=== PATIENT | female | born 1995 | race Caucasian/White ===

== ENCOUNTER 2022-12-24 13:15 | Outpatient (CLI) | payer OTHER ==
[2022-12-24 18:00] LABS: BASOPHILS % (AUTO) 0.4 %; EOSINOPHILS # (AUTO) 0.2 10^3/uL (0.0-0.7); EOSINOPHILS % (AUTO) 1.6 %; HCT - HEMATOCRIT 40.6 % (37.0-47.0); HGB - HEMOGLOBIN 13.2 g/dL (12.0-16.0); LYMPHOCYTES % (AUTO) 32.4 %; MEAN CORPUSCULAR HEMOGLOBIN 27.4 pg (27.0-31.0); MEAN CORPUSCULAR HGB CONC 32.5 g/dL (32.0-36.0); MEAN CORPUSCULAR VOLUME 84.4 fL (81.0-99.0); MONOCYTES # (AUTO) 0.8 10^3/uL (0.0-1.0); MONOCYTES % (AUTO) 8.8 %; NEUTROPHILS # (AUTO) 5.3 10^3/uL (1.5-6.6); NEUTROPHILS % (AUTO) 56.5 %; PLT - PLATELET COUNT 302 10^3/uL (130-450); RED BLOOD COUNT 4.81 10^6/uL (4.20-5.40); RED CELL DISTRIBUTION WIDTH 13.3 % (12.0-15.0); WHITE BLOOD COUNT 9.4 x10^3/uL (4.8-10.8)
[2022-12-24 18:17] LABS: ALBUMIN 4.1 g/dL (3.2-5.5); ALBUMIN/GLOBULIN RATIO 1.3 (1.0-2.2); BILIRUBIN,TOTAL 0.8 mg/dL (0.2-1.0); CALCIUM 9.3 mg/dL (8.5-10.3); CREATININE 0.8 mg/dL (0.4-1.0); POTASSIUM 3.6 mmol/L (3.5-5.0); TOTAL PROTEIN 7.3 g/dL (6.7-8.2)
[2022-12-24 18:29] LABS: THYROID STIMULATING HORMONE 1.31 uIU/mL (0.34-5.60)
== END 2022-12-24 13:30 | disposition home or self-care (01) ==
LOC: LAB.N 13:15
PROVIDERS: ATTEND Family Medicine
DX: R06.09 Other forms of dyspnea (principal)
CPT/HCPCS: 36415; 80053; 83880; 84443; 85025

== ENCOUNTER 2022-12-24 15:10 | Outpatient (CLI) | payer OTHER ==
--- NOTE | 2022-12-24 16:44 | XRAY Report ---
PROCEDURE: Chest 2 View X-Ray INDICATIONS: DYSPNEA ON EXERTION TECHNIQUE: 2 views of the chest were acquired. COMPARISON: None. FINDINGS: Surgical changes and devices: None. Lungs and pleura: No pleural effusions or pneumothorax. Lungs are clear. Mediastinum: Mediastinal contours appear normal. Heart size is normal. Bones and chest wall: No suspicious bony lesions. Overlying soft tissues appear unremarkable. IMPRESSION: No acute cardiopulmonary process. Reviewed by: Donovan Ramirez MD on 12/24/2022 3:43 PM AKDT Approved by: Donovan Ramirez MD on 12/24/2022 3:43 PM AKDT Station ID: [id number]
== END 2022-12-24 15:11 | disposition home or self-care (01) ==
LOC: DI 15:10
PROVIDERS: ATTEND Family Medicine
DX: R06.09 Other forms of dyspnea (principal)
CPT/HCPCS: 36415; 80053; 83880; 84443; 85025

== ENCOUNTER 2023-07-28 10:30 | Outpatient (CLI) | payer OTHER | END 2023-07-28 10:45 | disposition home or self-care (01) | LOC: LAB.N 10:30 | PROVIDERS: ATTEND Family Medicine | DX: N91.2 Amenorrhea, unspecified (principal) | CPT/HCPCS: 36415; 84702 ==

== ENCOUNTER 2023-09-17 07:15 | Outpatient (CLI) | payer OTHER ==
[2023-09-17 12:48] LABS: HCG,QUALITATIVE BLOOD NEGATIVE
== END 2023-09-17 07:30 | disposition home or self-care (01) ==
LOC: LAB.N 07:15
PROVIDERS: ATTEND Family Medicine
DX: N91.2 Amenorrhea, unspecified (principal)
CPT/HCPCS: 36415; 84703

== ENCOUNTER 2023-11-29 13:27 | Emergency (ER) | payer OTHER ==
[2023-11-29 14:31] LABS: BASOPHILS % (AUTO) 0.4 %; EOSINOPHILS # (AUTO) 0.1 10^3/uL (0.0-0.7); EOSINOPHILS % (AUTO) 1.5 %; HGB - HEMOGLOBIN 13.9 g/dL (12.0-16.0); LYMPHOCYTES % (AUTO) 31.1 %; MEAN CORPUSCULAR HEMOGLOBIN 27.4 pg (27.0-31.0); MEAN CORPUSCULAR HGB CONC 32.3 g/dL (32.0-36.0); MEAN CORPUSCULAR VOLUME 84.6 fL (81.0-99.0); MEAN PLATELET VOLUME 9.3 fL (7.9-10.8); MONOCYTES # (AUTO) 0.9 10^3/uL (0.0-1.0); NEUTROPHILS # (AUTO) 5.5 10^3/uL (1.5-6.6); NEUTROPHILS % (AUTO) 57.7 %; PLT - PLATELET COUNT 334 10^3/uL (130-450); RED BLOOD COUNT 5.08 10^6/uL (4.20-5.40); RED CELL DISTRIBUTION WIDTH 13.1 % (12.0-15.0); WHITE BLOOD COUNT 9.5 x10^3/uL (4.8-10.8)
[2023-11-29 14:48] LABS: CALCIUM 9.6 mg/dL (8.5-10.3); CREATININE 0.7 mg/dL (0.6-1.3); POTASSIUM 4.1 mmol/L (3.5-4.5)
--- NOTE | 2023-11-29 15:42 | ED Physician Documentation ---
PD HPI FEMALE - Stated complaint Stated Complaint: /5WKS PREG - Chief complaint Chief Complaint: Abd Pain - History obtained from History obtained from: Patient - Additional information Additional information: 28-year-old female presents for vaginal spotting in early . Per last menstrual period patient is approximately 5.5 weeks , confirmed on home urine sticks. Yesterday patient had light spotting and today she has heavier bleeding with cramping. She called her doctor's office who referred her to the ER. This is her first . Review of Systems Constitutional: denies: Fever, Chills GI: denies: Abdominal Pain, Nausea, Vomiting : reports: Vaginal bleeding. denies: Dysuria, Frequency, Hesitancy, Control Neurologic: denies: Generalized weakness, Focal weakness, Numbness PD PAST MEDICAL HISTORY - Past Medical History Past Medical History: Yes GI: GERD Psych: Depression, Anxiety - Past Surgical History Past Surgical History: No - Allergies Allergies/Adverse Reactions: Allergies Allergy/AdvReac Type Severity Reaction Status Date / Time No Known Drug Allergies Allergy Verified 11/29/23 13:43 - Social History Does the pt smoke?: No Smoking Status: Never smoker Does the pt drink ETOH?: No Does the pt have substance abuse?: No - Immunizations Immunizations are current?: Yes - POLST Patient has POLST: No PD ED PE NORMAL - Vitals Vital signs reviewed: Yes - General General: Alert and oriented X 3, No acute distress, Well developed/nourished - Cardiac Cardiac: RRR, Strong equal pulses - Respiratory Respiratory: No respiratory distress - Derm Derm: Normal color, Warm and dry, No rash - Neuro Neuro: Alert and oriented X 3, 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, No motor deficit, Normal speech - Psych Psych: Normal mood, Normal affect Results - Vitals Vitals: Oxygen O2 Source Room air - Labs Labs: Laboratory Tests 11/29/23 11/29/23 11/29/23 14:23 14:23 14:23 WBC 9.5 RBC 5.08 Hgb 13.9 Hct 43.0 MCV 84.6 MCH 27.4 MCHC 32.3 RDW 13.1 Plt Count 334 MPV 9.3 Neut # (Auto) 5.5 Lymph # (Auto) 3.0 [place] # (Auto) 0.9 Eos # (Auto) 0.1 Baso # (Auto) 0.0 Absolute Nucleated RBC 0.00 Nucleated RBC % 0.0 Sodium 138 Potassium 4.1 Chloride 107 Carbon Dioxide 23 Anion Gap 8.0 BUN 13 Creatinine 0.7 Estimated GFR (MDRD) 101 Glucose 98 Calcium 9.6 Beta HCG, Quant 4.2 Blood Type O POSITIVE PD Medical Decision Making - ED course Complexity details: reviewed results, re-evaluated patient, considered differential, d/w patient, d/w family ED course: Vaginal bleeding in very early . G1, P0. Laboratory work shows that hCG quant is barely high enough to be considered positive. Ultrasound shows no significant findings. Blood type a positive. Patient informed of very likely miscarriage as well as anticipated recovery course at home. She was advised to follow-up with MANUAL LATHE MACHINIST and primary care Departure - Departure Disposition: 01 Home, Self Care Clinical Impression: Miscarriage Condition: Stable Instructions: Miscarriage Dc Comments: Your hcg quant level was almost zero and your ultrasound did not show a in the uterus, indicating a likely miscarriage. Please follow up with your primary care doctor as needed. Forms: PCP List Discharge Date/Time: 11/29/23 16:41
--- NOTE | 2023-11-29 16:01 | Ultrasound Report ---
PROCEDURE: OB 1st Trimester w/TV INDICATIONS: 5w VB OUTSIDE/PRIOR DATING DATA: Last menstrual period (LMP): 10/22/2023. LMP-based estimated date of delivery (DAY): 07/28/2024. First dating scan (date and location): 11/29/2023. Estimated date of delivery (DAY) from first dating scan: Not applicable. TECHNIQUE: Real-time scanning was performed of the fetus and maternal pelvic organs, with image documentation. Endovaginal scanning was also performed to better visualize the fetus and maternal ovaries. COMPARISON: None. FINDINGS: No visualized intra or extrauterine . No free fluid. Uterus is normal in size. Endometrial c omplex measures 6 mm. Maternal organs: Ovaries appear within normal limits within visualized portions. IMPRESSION: No visualized intra or extrauterine . Recommend correlation of beta hCG levels and short int erval imaging follow-up as clinically indicated. Reviewed by: Rosaline Shore MD on 11/29/2023 3:59 PM PDT Approved by: Rosaline Shore MD on 11/29/2023 3:59 PM PDT Station ID: [id number]
[2023-11-29 16:44] VITALS: BP 134/94; O2SAT 100
== END 2023-11-29 16:41 | disposition home or self-care (01) ==
LOC: ED 13:27
DX: O03.9 Complete or unspecified spontaneous abortion without complication (principal); Z3A.01 Less than 8 weeks gestation of pregnancy
CPT/HCPCS: 36415; 80048; 84702; 85025; 86900; 86901; 99283; 99284

== ENCOUNTER 2024-03-05 11:16 | Emergency (ER) | payer OTHER ==
[2024-03-05 11:51] LABS: BILIRUBIN,URINE NEGATIVE (NEGATIVE); GLUCOSE, URINE (UA) NEGATIVE (NEGATIVE); KETONES,URINE (UA) NEGATIVE (NEGATIVE); LEUKOCYTE ESTERASE, URINE NEGATIVE (NEGATIVE); NITRITE,URINE NEGATIVE (NEGATIVE); OCCULT BLOOD,URINE SMALL (NEGATIVE); PH,URINE 6.5 PH (5.0-7.5); PROTEIN,URINE NEGATIVE (NEGATIVE); UROBILINOGEN,URINE 0.2 (NORMAL) E.U./dL (NORMAL)
[2024-03-05 11:53] LABS: CLARITY,URINE CLEAR (CLEAR)
[2024-03-05 12:23] LABS: BACTERIA,URINE Rare /HPF (None Seen); RBC,URINE 0-5 /HPF (0-5); SQUAMOUS EPITHELIAL CELL,UR FEW Squamous (<= Few); WBC,URINE 0-3 /HPF (0-5)
[2024-03-05 12:27] LABS: BASOPHILS % (AUTO) 0.5 %; EOSINOPHILS # (AUTO) 0.1 10^3/uL (0.0-0.7); HCT - HEMATOCRIT 39.9 % (37.0-47.0); HGB - HEMOGLOBIN 13.5 g/dL (12.0-16.0); LYMPHOCYTES # (AUTO) 2.8 10^3/uL (1.5-3.5); LYMPHOCYTES % (AUTO) 33.5 %; MEAN CORPUSCULAR HEMOGLOBIN 28.5 pg (27.0-31.0); MEAN CORPUSCULAR HGB CONC 33.8 g/dL (32.0-36.0); MEAN CORPUSCULAR VOLUME 84.2 fL (81.0-99.0); MEAN PLATELET VOLUME 9.2 fL (7.9-10.8); MONOCYTES # (AUTO) 0.7 10^3/uL (0.0-1.0); MONOCYTES % (AUTO) 8.6 %; NEUTROPHILS # (AUTO) 4.6 10^3/uL (1.5-6.6); NEUTROPHILS % (AUTO) 56.2 %; PLT - PLATELET COUNT 254 10^3/uL (130-450); RED BLOOD COUNT 4.74 10^6/uL (4.20-5.40); RED CELL DISTRIBUTION WIDTH 13.1 % (12.0-15.0); WHITE BLOOD COUNT 8.2 x10^3/uL (4.8-10.8)
[2024-03-05 12:48] VITALS: BP 126/83; O2SAT 100
--- NOTE | 2024-03-05 12:53 | ED Physician Documentation ---
History of Present Illness - Stated complaint Stated Complaint: FEMALE - Chief complaint Chief Complaint: General - History obtained from History obtained from: Patient - Additonal information Additional information: Patient is a 29-year-old female presenting to the emergency department with vaginal bleeding that started this morning and she is having some right lower quadrant cramping but she notes this has been going on for weeks and she is notes she has been . She denies any nausea or vomiting. She notes no large amounts of vaginal bleeding. She notes she did not wear a pad and it only occurred while she was wiping. She had a similar episode back in November when she presented here and was having a miscarriage. Patient notes G2, P0. She notes symptoms from last November are different from today as she is not bleeding as much as she was previously. She notes she is not on any blood thinners and does not take any medications regularly. She has not had an ultrasound and has not seen COMM[facility]ATOR [facility] at this time her next appointment is on early Wednesday.Patient also incidentally notes she was diagnosed with COVID earlier this week which is why she missed her [facility] [employer] AS[employer] appointments earlier this week. [place] [facility] [place] [place] She notes no persistent COVID-like symptoms no chest pain or shortness of breath associate with symptoms. PD PAST MEDICAL HISTORY - Past Medical History Past Medical History: Yes Cardiovascular: None Respiratory: Asthma Neuro: Migraines Endocrine/Autoimmune: None GI: GERD TELE MARKETING EXECUTIVE: Ovarian cysts, Miscarriage(s) : None HEENT: None Psych: Depression, Anxiety Musculoskeletal: Chronic back pain Derm: None - Past Surgical History Past Surgical History: No - Present Medications Home Medications: Ambulatory Orders Medication Instructions Recorded Confirmed Pnv No.95/Ferrous Fum/Folic AC 1 each PO DAILY 03/05/24 03/05/24 [ Tablet] Sertraline HCl 100 mg PO DAILY 03/05/24 03/05/24 - Allergies Allergies/Adverse Reactions: Allergies Allergy/AdvReac Type Severity Reaction Status Date / Time shellfish derived Allergy Hives Verified 03/05/24 11:22 - Social History Does the pt smoke?: No Smoking Status: Never smoker Does the pt drink ETOH?: No Does the pt have substance abuse?: No - Immunizations Immunizations are current?: Yes - POLST Patient has POLST: No PD ED PE NORMAL - Vitals Vital signs reviewed: Yes - General General: Alert and oriented X 3 - HEENT HEENT: Atraumatic - Neck Neck: Supple, no meningeal sign - Cardiac Cardiac: RRR, No murmur, No gallop, No rub - Respiratory Respiratory: No respiratory distress, Clear bilaterally - Abdomen Abdomen: Normal bowel sounds - Back Back: No CVA TTP Results - Vitals Vitals: Vital Signs - 24 hr 03/05/24 03/05/24 03/05/24 11:24 12:44 14:04 Temperature 36.4 C L Heart Rate 94 84 91 Respiratory 18 18 14 Rate Blood Pressure 141/82 H 126/83 H O2 Saturation 97 100 100 Oxygen O2 Source Room air - Labs Labs: Laboratory Tests 03/05/24 03/05/24 03/05/24 11:45 12:18 12:18 WBC 8.2 RBC 4.74 Hgb 13.5 Hct 39.9 MCV 84.2 MCH 28.5 MCHC 33.8 RDW 13.1 Plt Count 254 MPV 9.2 Neut # (Auto) 4.6 Lymph # (Auto) 2.8 [place] # (Auto) 0.7 Eos # (Auto) 0.1 Baso # (Auto) 0.0 Absolute Nucleated RBC 0.00 Nucleated RBC % 0.0 Sodium 136 Potassium 3.8 Chloride 106 Carbon Dioxide 23 Anion Gap 7.0 BUN 9 Creatinine 0.6 Estimated GFR (MDRD) 120 Glucose 108 H Calcium 9.0 Total Bilirubin 0.8 AST 17 ALT 39 Alkaline Phosphatase 47 Total Protein 6.6 Albumin 4.0 Globulin 2.6 Albumin/Globulin Ratio 1.5 Beta HCG, Quant 80948.3 Urine Color YELLOW Urine Clarity CLEAR Urine pH 6.5 Ur Specific [place] 1.020 Urine Protein NEGATIVE Urine Glucose (UA) NEGATIVE Urine Ketones NEGATIVE Urine Occult Blood SMALL H Urine Nitrite NEGATIVE Urine Bilirubin NEGATIVE Urine Urobilinogen 0.2 (NORMAL) Ur Leukocyte Esterase NEGATIVE Urine RBC 0-5 Urine WBC 0-3 Ur Squamous Epith Cells FEW Squamous Urine Bacteria Rare Ur Microscopic Review INDICATED Urine Culture Comments NOT INDICATED PD Medical Decision Making - ED course ED course: Patient is a 29-year-old female presenting to the emergency department with vaginal bleeding that started this morning and she is having some right lower quadrant cramping but she notes this has been going on for weeks and she is notes she has been . She denies any nausea or vomiting. She notes no large amounts of vaginal bleeding. She notes she did not wear a pad and it only occurred while she was wiping. She had a similar episode back in November when she presented here and was having a miscarriage. Patient notes G2, P0. She notes symptoms from last November are different from today as she is not bleeding as much as she was previously. She notes she is not on any blood thinners and does not take any medications regularly. She has not had an ultrasound and has not seen COMMUTATOR [facility]ING ASSEMBLER at this time her next appointment is on early Wednesday. Labs show no signs of UTI no leukocytes in the urine there are squamous cells and cultures are being sent however will not start on antibiotics today. Beta- hCG quant at 27,000 this is appropriate for patient's first trimester. Hemoglobin is stable at 13.5 here in the emergency department. Ultrasound here in the emergency department shows intrauterine with heart rate of 123 bpm. 6 weeks and 5 days old. Patient has bilateral ovarian cysts with left slightly larger than right but good flow. Patient does have a subchorionic hematoma that is about 25% of the gestational sac that most likely is the cause for vaginal bleeding. Patient updated on reassuring findings. Patient's vaginal bleeding seems to have stopped. She denies any worsening right quadrant pain than normal. Could be secondary to round ligament pain given it has been persistent for the past few weeks and not worse than normal. Her vital signs remained stable here in the emergency department. Discussed with patient she is following up with COMMUTATOR [facility]ING ASSEMBLER on Wednesday for her first initial visit. Will call patient if bacterial vaginosis swab is positive. Instructed patient to keep this appointment and update on reassuring ultrasound at 6 weeks. Patient is agreeable with this plan. Departure - Departure Disposition: 01 Home, Self Care Clinical Impression: Vaginal bleeding during , First trimester bleeding, Subchorionic hematoma in first trimester Condition: Good Comments: You are seen here in the emergency department for your vaginal bleeding. Your workup here showed intrauterine with a subchorionic hemorrhage this is the most common cause for vaginal bleeding and females. Occasionally can have higher risk for miscarriage at times if it incontinences the gestational sac more than 25%. Your gestational sac is at exactly 25% on ultrasound here. If you develop any worsening vaginal bleeding cramping fevers urinary symptoms persistent nausea vomiting return to emergency department. Follow-up with your COMMUTATOR [facility] RING ASSEMBLER in outpatient setting as instructed. Return with any of the symptoms listed above or any other new or worsening symptoms. Forms: PCP List
[2024-03-05 12:57] LABS: ALBUMIN/GLOBULIN RATIO 1.5 (1.0-2.2); BILIRUBIN,TOTAL 0.8 mg/dL (0.2-1.0); CREATININE 0.6 mg/dL (0.6-1.3); POTASSIUM 3.8 mmol/L (3.5-4.5); TOTAL PROTEIN 6.6 g/dL (6.4-8.9)
--- NOTE | 2024-03-05 13:45 | Ultrasound Report ---
PROCEDURE: OB 1st Trimester w/TV INDICATIONS: cramping/spotting/preg est 9 wk OUTSIDE/PRIOR DATING DATA: Last menstrual period (LMP): 12/31/2023. LMP-based estimated date of delivery (DAY): 10/06/2024. TECHNIQUE: Real-time scanning was performed of the fetus and maternal pelvic organs, with image documentation. Endovaginal scanning was also performed to better visualize the fetus and maternal ovaries. COMPARISON: None. FINDINGS: There is an intrauterine gestational sac with pole and yolk sac. There is a small bello bchorionic hemorrhage which encompasses less than 25% of the gestational sac perimeter. Heart rate: 123 bpm. CRL: 0.76 cm, correlating with a gestational age of 6 weeks 5 days. Maternal organs: Ovaries appear within normal limits. IMPRESSION: Early intrauterine with a sonographic gestational age of 6 weeks 5 days. Small subchorionic hemorrhage. Reviewed by: Lynne Moon MD on 03/05/2024 12:44 PM THUAN Approved by: Lynne Moon MD on 03/05/2024 12:44 PM THUAN Station ID: [id number]
[2024-03-05 15:54] LABS: BACTERIAL VAGINOSIS DNA NEGATIVE (NEGATIVE); CANDIDA GLABRATA DNA NEGATIVE (NEGATIVE); CANDIDA GROUP DNA NEGATIVE (NEGATIVE); CANDIDA KRUSEI DNA NEGATIVE (NEGATIVE); TRICHOMONAS VAGINALIS DNA NEGATIVE (NEGATIVE)
== END 2024-03-05 14:30 | disposition home or self-care (01) ==
LOC: ED 11:16
DX: O20.8 Other hemorrhage in early pregnancy (principal); Z3A.01 Less than 8 weeks gestation of pregnancy
CPT/HCPCS: 36415; 80053; 81001; 81003; 81514; 84702; 85025; 86850; 86900; 86901; 87086; 99284

== ENCOUNTER 2024-03-10 08:00 | Outpatient (CLI) | payer OTHER ==
[2024-03-10 17:53] LABS: BILIRUBIN,URINE NEGATIVE (NEGATIVE); CLARITY,URINE CLEAR (CLEAR); GLUCOSE, URINE (UA) NEGATIVE (NEGATIVE); KETONES,URINE (UA) NEGATIVE (NEGATIVE); LEUKOCYTE ESTERASE, URINE TRACE (NEGATIVE); NITRITE,URINE NEGATIVE (NEGATIVE); OCCULT BLOOD,URINE NEGATIVE (NEGATIVE); PROTEIN,URINE NEGATIVE (NEGATIVE); UROBILINOGEN,URINE 0.2 (NORMAL) E.U./dL (NORMAL)
[2024-03-10 18:24] LABS: BACTERIA,URINE Moderate /HPF (None Seen); RBC,URINE 0-5 /HPF (0-5); SQUAMOUS EPITHELIAL CELL,UR MANY Squamous (<= Few)
== END 2024-03-10 22:35 | disposition home or self-care (01) ==
LOC: LAB.WC 08:00
PROVIDERS: ATTEND Nurse Practitioner
DX: Z34.00 Encounter for supervision of normal first pregnancy, unspecified trimester (principal)
CPT/HCPCS: 81001; 87086

== ENCOUNTER 2024-03-16 08:00 | Outpatient (CLI) | payer OTHER ==
[2024-03-16 13:08] LABS: BASOPHILS % (AUTO) 0.4 %; EOSINOPHILS # (AUTO) 0.2 10^3/uL (0.0-0.7); EOSINOPHILS % (AUTO) 1.5 %; HCT - HEMATOCRIT 41.1 % (37.0-47.0); HGB - HEMOGLOBIN 13.5 g/dL (12.0-16.0); LYMPHOCYTES # (AUTO) 2.7 10^3/uL (1.5-3.5); LYMPHOCYTES % (AUTO) 26.7 %; MEAN CORPUSCULAR HEMOGLOBIN 27.7 pg (27.0-31.0); MEAN CORPUSCULAR HGB CONC 32.8 g/dL (32.0-36.0); MEAN CORPUSCULAR VOLUME 84.4 fL (81.0-99.0); MEAN PLATELET VOLUME 9.6 fL (7.9-10.8); MONOCYTES # (AUTO) 0.9 10^3/uL (0.0-1.0); MONOCYTES % (AUTO) 8.6 %; NEUTROPHILS # (AUTO) 6.2 10^3/uL (1.5-6.6); NEUTROPHILS % (AUTO) 62.5 %; PLT - PLATELET COUNT 346 10^3/uL (130-450); RED BLOOD COUNT 4.87 10^6/uL (4.20-5.40); RED CELL DISTRIBUTION WIDTH 13.1 % (12.0-15.0)
[2024-03-16 20:54] LABS: ESTIMATED AVERAGE GLUCOSE 105 mg/dL (70-100); HEMOGLOBIN A1c% 5.3 % (4.27-6.07)
[2024-03-17 02:09] LABS: HBsAG SCREEN Negative (Negative)
[2024-03-17 04:10] LABS: HIV SCREEN 4TH GENERATION Non Reactive (Non Reactive)
[2024-03-17 07:12] LABS: RPR Non Reactive (Non Reactive)
[2024-03-17 09:11] LABS: VARICELLA-ZOSTER AB IGG 753 index (Immune >165)
[2024-03-19 05:09] LABS: HCV AB Non Reactive (Non Reactive)
== END 2024-03-16 23:59 | disposition home or self-care (01) ==
LOC: LAB.WC 08:00
PROVIDERS: ATTEND Nurse Practitioner
DX: Z34.00 Encounter for supervision of normal first pregnancy, unspecified trimester (principal)
CPT/HCPCS: 36415; 83036; 85025; 86592; 86762; 86787; 86803; 86850; 86900; 86901; 87340; 87389

== ENCOUNTER 2024-10-03 07:53 | Inpatient (IN) ==
[2024-10-03] MEDS ORDERED: OXYTOCIN 10 UNIT/ML VIAL IM PRN (08:00)
[2024-10-03] MEDS ORDERED: OXYTOCIN/SODIUM CHLORIDE 500 ML IV PRN (08:00)
[2024-10-03] MEDS ORDERED: METOCLOPRAMIDE 10 MG/2 ML VIAL IVP PRN (08:00)
[2024-10-03] MEDS ORDERED: LACTATED RINGERS 1,000 ML IV PRN (08:00)
[2024-10-03] MEDS ORDERED: METHYLERGONOVINE 0.2 MG/ML VIAL IM PRN (08:00)
[2024-10-03] MEDS ORDERED: lidocaine 1% 20 ML MDV ID PRN (08:00)
[2024-10-03] MEDS ORDERED: hydrALAZINE INJ 20 MG/ML VIAL IVP PRN ×2 (08:00)
[2024-10-03] MEDS ORDERED: SODIUM CHLORIDE FLUSH 0.9% 10 ML SYRINGE IVP PRN (08:00)
[2024-10-03] MEDS ORDERED: CARBOPROST TROMETHAMINE 250 MCG/ML VIAL IM PRN (08:00)
[2024-10-03] MEDS ORDERED: METOCLOPRAMIDE 10 MG TABLET PO PRN (08:00)
[2024-10-03] MEDS ORDERED: PROMETHAZINE 25 MG TABLET PO PRN (08:00)
[2024-10-03] MEDS ORDERED: TRANEXAMIC ACID IN NACL 1,000 MG/100 ML BAG IV PRN (08:00)
[2024-10-03] MEDS ORDERED: miSOPROStoL 200 MCG TABLET BC PRN (08:00)
[2024-10-03] MEDS ORDERED: LABETALOL 20 MG/4 ML SYRINGE IVP PRN ×3 (08:00)
[2024-10-03] MEDS ORDERED: NIFEdipine 10 MG CAPSULE PO PRN (08:00)
--- OUTSIDE RECORDS SUMMARY | 2024-10-03 09:02 | EXTERNAL MEDICAL SUMMARY RPT | Continuity of Care Document ---
Author Organization [facility] Address [address] [place] [id number] Phone Problems date description facility 2024-07-05 17:08 Supervision of high risk , unspecified, first trimester [facility] 2024-07-05 17:08 Unspecified pre-exis ting hypertension complicating , unspecified trimester [facility] 2024-07-05 17:08 Obesity complicating , first trimester [facility] 2024-07-05 17:10 Supervision of high risk , unspecified, first trimester [facility] 2024-07-05 17:10 Unspecified pre-exis ting hypertension complicating , unspecified trimester [facility] 2024-07-05 17:10 Obesity complicating , first trimester [facility] 2024-07-07 12:48 Supervision of high risk , unspecified, first trimester [facility] 2024-07-07 12:48 Unspecified pre-exis ting hypertension complicating , unspecified trimester [facility] 2024-07-07 12:48 Obesity complicating , first trimester [facility] 2024-07-10 17:10 Supervision of high risk , unspecified, first trimester [facility] 2024-07-10 17:10 Unspecified pre-exis ting hypertension complicating , unspecified trimester [facility] 2024-07-10 17:10 Obesity complicating , first trimester [facility] 2024-07-11 00:02 Supervision of high risk , unspecified, first trimester [facility] 2024-07-11 00:02 Unspecified pre-exis ting hypertension complicating , unspecified trimester [facility] 2024-07-11 00:02 Obesity complicating , first trimester [facility] 2024-07-12 09:05 Supervision of high risk , unspecified, first trimester [facility] 2024-07-12 09:05 Unspecified pre-exis ting hypertension complicating , first trimester [facility] 2024-07-12 09:05 Obesity complicating , first trimester [facility] 2024-07-21 00:03 Unspecified pre-exis ting hypertension complicating , unspecified trimester [facility] 2024-07-21 00:03 Obesity complicating , first trimester [facility] Document Preparation 2024-07-21 06:46 Unspecified pre-exis ting hypertension complicating , unspecified trimester [facility] 2024-07-21 06:46 Obesity complicating , first trimester [facility] 2024-08-01 00:04 Supervision of high risk , unspecified, first trimester [facility] Document Preparation 2024-08-01 00:04 Encounter for superv ision of normal , unspecified, unspecified trimester [facility] Document Preparation 2024-08-01 08:58 Supervision of high risk , unspecified, first trimester [facility] Document Preparation 2024-08-01 16:37 Unspecified pre-exis ting hypertension complicating , unspecified trimester [facility] Document Preparation 2024-08-01 16:37 Obesity complicating , first trimester [facility] Document Preparation 2024-08-01 16:45 Unspecified pre-exis ting hypertension complicating , unspecified trimester [facility] 2024-08-01 16:45 Obesity complicating , first trimester [facility] Document Preparation 2024-08-01 16:46 Unspecified pre-exis ting hypertension complicating , unspecified trimester [facility] Document Preparation 2024-08-01 16:46 Obesity complicating , first trimester [facility] 2024-08-03 09:57 Unspecified pre-exis ting hypertension complicating , unspecified trimester [facility] 2024-08-03 09:57 Obesity complicating , first trimester [facility] 2024-08-03 11:42 Encounter for immunization [facility] 2024-08-04 16:20 Unspecified pre-exis ting hypertension complicating , unspecified trimester [facility] 2024-08-04 16:20 Obesity complicating , first trimester [facility] Document Preparation 2024-08-05 00:01 Unspecified pre-exis ting hypertension complicating , unspecified trimester [facility] 2024-08-05 00:01 Obesity complicating , first trimester [facility] 2024-08-07 16:47 Unspecified pre-exis ting hypertension complicating , unspecified trimester [facility] Document Preparation 2024-08-18 06:18 Unspecified pre-exis ting hypertension complicating , unspecified trimester [facility] Document Preparation 2024-08-18 08:17 Unspecified pre-exis ting hypertension complicating , unspecified trimester [facility] Document Preparation 2024-08-18 08:34 Unspecified pre-exis ting hypertension complicating , unspecified trimester [facility] Document Preparation 2024-08-31 09:58 Unspecified pre-exis ting hypertension complicating , unspecified trimester [facility] Document Preparation 2024-09-01 16:23 Unspecified pre-exis ting hypertension complicating , unspecified trimester [facility] Document Preparation 2024-09-02 00:01 Unspecified pre-exis ting hypertension complicating , unspecified trimester [facility] Document Preparation 2024-09-04 10:22 Unspecified pre-exis ting hypertension complicating , first trimester [facility] Document Preparation 2024-09-04 10:22 Unspecified pre-exis ting hypertension complicating , third trimester [facility] Document Preparation 2024-09-04 10:22 Obesity complicating , third trimester [facility] Document Preparation 2024-09-05 15:37 Morbid (severe) obesity due to excess calories [facility] Document Preparation 2024-09-05 15:37 Unspecified pre-exis ting hypertension complicating , unspecified trimester [facility] Document Preparation 2024-09-05 16:03 Morbid (severe) obesity due to excess calories [facility] Document Preparation 2024-09-05 16:03 Unspecified pre-exis ting hypertension complicating , unspecified trimester [facility] Document Preparation 2024-09-09 00:02 Morbid (severe) obesity due to excess calories [facility] Document Preparation 2024-09-09 00:02 Unspecified pre-exis ting hypertension complicating , unspecified trimester [facility] Document Preparation 2024-09-09 00:02 Polyhydramnios, thir d trimester, not applicable or unspecified [facility] Document Preparation 2024-09-11 07:09 Morbid (severe) obesity due to excess calories [facility] Document Preparation 2024-09-11 07:09 Unspecified pre-exis ting hypertension complicating , unspecified trimester [facility] Document Preparation 2024-09-12 12:00 Unspecified pre-exis ting hypertension complicating , third trimester [facility] Document Preparation 2024-09-14 08:53 Abnormal uterine and vaginal bl eeding, unspecified [facility] Document Preparation 2024-09-14 08:53 Right lower quadrant pain [facility] 2024-09-14 10:49 Morbid (severe) obesity due to excess calories [facility] Document Preparation 2024-09-14 10:49 Unspecified pre-exis ting hypertension complicating , unspecified trimester [facility] Document Preparation 2024-09-14 10:49 Polyhydramnios, thir d trimester, not applicable or unspecified [facility] Document Preparation 2024-09-15 12:34 Morbid (severe) obesity due to excess calories [facility] Document Preparation 2024-09-15 12:34 Unspecified pre-exis ting hypertension complicating , unspecified trimester [facility] Document Preparation 2024-09-15 12:34 Polyhydramnios, thir d trimester, not applicable or unspecified [facility] Document Preparation 2024-09-15 12:35 Morbid (severe) obesity due to excess calories [facility] Document Preparation 2024-09-15 12:35 Unspecified pre-exis ting hypertension complicating , unspecified trimester [facility] Document Preparation 2024-09-15 12:35 Polyhydramnios, thir d trimester, not applicable or unspecified [facility] Document Preparation 2024-09-18 15:25 Unspecified pre-exis ting hypertension complicating , unspecified trimester [facility] Document Preparation 2024-09-19 15:40 Morbid (severe) obesity due to excess calories [facility] Document Preparation 2024-09-19 15:40 Unspecified pre-exis ting hypertension complicating , unspecified trimester [facility] Document Preparation 2024-09-19 16:30 Morbid (severe) obesity due to excess calories [facility] Document Preparation 2024-09-19 16:30 Unspecified pre-exis ting hypertension complicating , unspecified trimester [facility] Document Preparation 2024-09-21 11:55 Morbid (severe) obesity due to excess calories [facility] Document Preparation 2024-09-21 11:55 Unspecified pre-exis ting hypertension complicating , unspecified trimester [facility] Document Preparation 2024-09-21 11:55 Polyhydramnios, thir d trimester, not applicable or unspecified [facility] Document Preparation 2024-09-22 10:59 Morbid (severe) obesity due to excess calories [facility] Document Preparation 2024-09-22 10:59 Unspecified pre-exis ting hypertension complicating , unspecified trimester [facility] Document Preparation 2024-09-28 12:15 Unspecified pre-exis ting hypertension complicating , unspecified trimester [facility] Document Preparation 2024-09-28 13:55 Morbid (severe) obesity due to excess calories [facility] Document Preparation 2024-09-28 13:55 Unspecified pre-exis ting hypertension complicating , unspecified trimester [facility] Document Preparation 2024-09-28 13:55 Polyhydramnios, thir d trimester, not applicable or unspecified [facility] Document Preparation 2024-09-28 16:19 Encounter for screeni ng for Streptococcus B [facility] Document Preparation 2024-09-29 00:04 Encounter for screeni ng for Streptococcus B [facility] Document Preparation 2024-10-02 15:05 Abnormal uterine and vaginal bl eeding, unspecified [facility] Document Preparation 2024-10-02 15:05 [facility] 15:05 Encounter for screeni ng for Streptococcus B [facility] 2024-10-02 15:06 Morbid (severe) obesity due to excess calories [facility] Document Preparation 2024-10-02 15:06 Unspecified pre-exis ting hypertension complicating , unspecified trimester [facility] Document Preparation 2024-10-02 15:06 Polyhydramnios, thir d trimester, not applicable or unspecified [facility] Document Preparation 2024-10-02 15:06 Encounter for screeni ng for Streptococcus B [facility] Document Preparation 2024-10-02 15:07 Morbid (severe) obesity due to excess calories [facility] 2024-10-02 15:07 Unspecified pre-exis ting hypertension complicating , unspecified trimester [facility] Document Preparation 2024-10-02 15:07 Polyhydramnios, thir d trimester, not applicable or unspecified [facility] Document Preparation 2024-10-02 15:08 Morbid (severe) obesity due to excess calories [facility] Document Preparation 2024-10-02 15:08 Unspecified pre-exis ting hypertension complicating , unspecified trimester [facility] Document Preparation 2024-10-02 15:09 Unspecified pre-exis ting hypertension complicating , unspecified trimester [facility] Document Preparation 2024-10-02 15:09 Obesity complicating , first trimester [facility] Document Preparation 2024-10-02 15:09 Encounter for immunization [facility] 2024-10-02 15:10 Supervision of high risk , unspecified, first trimester [facility] Document Preparation 2024-10-02 15:10 Unspecified pre-exis ting hypertension complicating , unspecified trimester [facility] 2024-10-02 15:10 Obesity complicating , first trimester [facility] Document Preparation 2024-10-02 15:10 Encounter for immunization [facility] 2024-10-02 15:11 Obesity complicating , first trimester [facility] Document Preparation 2024-10-02 15:11 Elevated blood-press ure reading, without diagnosis of hypertension [facility] Document Preparation 2024-10-02 15:11 Encounter for other screening for genetic and chromosomal anomalies [facility] Document Preparation 2024-10-02 15:11 Encounter for superv ision of normal first , first trimester [facility] Document Preparation Results/Labs test date facility value unit notes Result panel 1 WHITE BLOOD COUNT 2024-07-31 14:05 [facility] Document Preparation 10.2 x10 3/ul (missing) MEAN PLATELET VOLUME 2024-07-31 14:05 [facility] 10.3 fl (missing) HGB - HEMOGLOBIN 2024-07-31 14:05 [facility] 11.5 g /dl (missing) GLUCOSE,1H PP 50GM DOSE 2024-07-31 14:05 [facility] 113 mg/dl Social History date description facility
[2024-10-03 09:11] LABS: BASOPHILS % (AUTO) 0.2 %; EOSINOPHILS # (AUTO) 0.1 10^3/uL (0.0-0.7); EOSINOPHILS % (AUTO) 1.1 %; HCT - HEMATOCRIT 32.4 % (37.0-47.0); HGB - HEMOGLOBIN 10.6 g/dL (12.0-16.0); LYMPHOCYTES # (AUTO) 1.8 10^3/uL (1.5-3.5); LYMPHOCYTES % (AUTO) 19.2 %; MEAN CORPUSCULAR HEMOGLOBIN 27.7 pg (27.0-31.0); MEAN CORPUSCULAR HGB CONC 32.7 g/dL (32.0-36.0); MEAN CORPUSCULAR VOLUME 84.6 fL (81.0-99.0); MEAN PLATELET VOLUME 10.8 fL (7.9-10.8); MONOCYTES # (AUTO) 0.8 10^3/uL (0.0-1.0); MONOCYTES % (AUTO) 8.7 %; NEUTROPHILS # (AUTO) 6.8 10^3/uL (1.5-6.6); NEUTROPHILS % (AUTO) 70.4 %; PLT - PLATELET COUNT 279 10^3/uL (130-450); RED BLOOD COUNT 3.83 10^6/uL (4.20-5.40); RED CELL DISTRIBUTION WIDTH 14.8 % (12.0-15.0); WHITE BLOOD COUNT 9.6 x10^3/uL (4.8-10.8)
[2024-10-03] MEDS ORDERED: miSOPROStoL 100 MCG TABLET ONE (09:16)
[2024-10-03] MEDS: miSOPROStoL 100 MCG TABLET VG SCH (09:17)
--- NOTE | 2024-10-03 10:37 | HISTORY & PHYSICAL EXAMINATION ---
Admit History Smoking Status: Never smoker Other Maternal History Other Maternal History: Patient is a 29-year-old G2, P0 at 37 weeks 0 days gestation presented for induction of labor secondary to difficult to control chronic hypertension. She has good movement. Denies loss of fluid. No ROSARIO/BV or RUQP. No vaginal bleeding. Denies nausea and vomiting. Denies urinary urgency or dysuria. All other symptoms reviewed and were negative except per HPI. Course LMP: 12/31/2023 DAY by LMP: 10/06/2024 US: on 03/05/24 at 6.5 wks NOT c/W LMP dating Final DAY: 10/24/2024 PROBLEMS: Chronic hypertension. Started on nifedipine ER 30mg 04/28/2024 Baseline Pre-E labs Cr. 05, AST/ALT , no protein, plt: 346 ASA started at 14 weeks NSTs at 32 weeks. Polyhydramnios at 32 weeks. KOBI 24.8, EFW 91%ile. refer to [facility], consult 09/22 after US 09/21. baby 3800 grams Pre- Weight: 310 lb BMI: 42.33 Blood type: O+ Antibody: negative CBC: PLT 346 HCT 41.1 HGB 13.5 RUB: immune VZV: immune HBsAg: NR HepC: NR RPR/AB-EIA: NR HIV: NR PAP: 03/10/2023 WNL GC/CT: neg Hgb A1C: 5.2% HSV: denies in self and partner Genetic testing:[place] [facility]- Negative Covid: Flu: 05/23/2024 FAS:06/20 Placenta: posterior without previa Cord: 3VC KOBI: WNL EFW: 459g, 45th% 50gm OGCT: 113 3HR GTT: TDAP: 08/03/2024 Breast Pump: 08/03/2024 Antibody screen: 3rd trimester PLT 346 HGB 11.5; HCT 35.5 3rd trimester RPR NR GBS: HPI Current : Vital Signs Temperature 36.8 C 10/03/24 08:03 Pulse Rate 99 10/03/24 08:03 Respiratory Rate 16 10/03/24 08:03 Blood Pressure 130/91 H 10/03/24 08:03 Meds/Allgy Home Medications Ambulatory Orders Medication Instructions Recorded Confirmed vit no.95-ferrous 1 ea PO DAILY 03/05/24 09/28/24 fumarate 28 mg-folic acid 800 mcg tablet acetaminophen 500 mg tablet 500 mg PO Q6H PRN 05/23/24 09/28/24 (Tylenol Extra Strength) aspirin 81 mg tablet,delayed 81 mg PO QDAY 05/23/24 09/28/24 release (Adult Low Dose Aspirin) sertraline 100 mg tablet 100 mg PO DAILY #90 tabs 08/12/24 09/28/24 famotidine 20 mg tablet See Rx Instructions .Route 09/14/24 09/28/24 .COMPLEX #180 tabs nifedipine 30 mg tablet,extended 60 mg PO QDAY 09/14/24 09/28/24 release labetalol 100 mg tablet 100 mg PO BID #60 tabs 09/25/24 09/28/24 Allergies Allergies Allergy/AdvReac Type Severity Reaction Status Date / Time shellfish derived Allergy Hives Verified 09/28/24 13:16 PFSH Active Problems All Active Problems (Updated 10/03/24 @ 10:39 by Bang Garnett MD) GBS (group B Streptococcus carrier), +RV culture, currently (Acute) 37 weeks gestation of (Acute) Supervision of high risk in third trimester (Acute) Obesity, Class III, BMI 40-49.9 (morbid obesity) (Acute) Polyhydramnios affecting in third trimester (Acute) Chronic hypertension affecting (Acute) Medical History Medical History (Updated 10/03/24 @ 10:39 by Bang Garnett MD) Supervision of high risk , unspecified, first trimester Obesity complicating in first trimester Anxiety associated with depression Dyspnea on exertion (12/24/22) Surgical History Surgical History (Updated 04/10/24 @ 14:51 by Keisha Frost MA) History of removal of ovarian cyst Family History Family History (Updated 05/23/24 @ 14:58 by Clary Esparza MA) Mother Mental disorder Diabetes Brother Mental disorder Maternal grandmother Mental disorder Thyroid disease Paternal grandmother Thyroid disease Breast cancer Congenital heart disease High blood pressure Father High blood pressure Social History Social History Smoking Status: Never smoker Do you dip or chew tobacco?: No Do you vape?: No Do you feel safe in your home environment?: Yes Suffered physical, verbal, emotional, or financial abuse?: No History of Abuse: No POLST Patient has POLST: No Review of Systems Status of ROS: 10 or more systems reviewed and unremarkable except as noted in history and below Physical Abdominal Exam Vital Signs: Temp Pulse Resp BP 36.8 C 99 16 130/91 H 10/03/24 08:03 10/03/24 08:03 10/03/24 08:03 10/03/24 08:03 Other Notes Labor Progress Note/Additional Text: General: Alert, oriented, no acute distress Head: Normal cephalic atraumatic Eyes: PERRLA, extraocular motions intact. Respiratory: Normal rate of respiration. No accessory muscle use, normal respiratory effort. Cardiovascular: Regular rate and rhythm Abdomen: Gravid, nontender, nondistended Extremities: Normal range of motion Neuro: Oriented x3. Normal movements Psych: Appropriate mood and affect. Normal judgment and insight SVE: 1/0/-3 FHT: 140 beats per baseline, variability, accelerations present, no decelerations. [place]: Irritable Plan for Labor Plan For Labor I expect patient to be DC'd or transferred within 96 hours.: Yes Conclusion/Plan Problem List (1) Supervision of high risk in third trimester: Plan: Admit to L&D, admit labs, admit for cervical ripening. If successful, we will proceed with labor management. Epidural at patient's request. Counseled on risk, benefits, alternatives of induction of labor including vaginal delivery, possible operative vaginal livery, possible section. Agree to plan to start induction with misoprostol for unfavorable cervix. (2) Obesity, Class III, BMI 40-49.9 (morbid obesity): Plan: Current BMI 45 (3) Polyhydramnios affecting in third trimester: Plan: Mild polyhydramnios. (4) Chronic hypertension affecting : Plan: Continue home labetalol and nifedipine.Mild elevation today no significant change. (5) 37 weeks gestation of : Plan: As above (6) GBS (group B Streptococcus carrier), +RV culture, currently : Plan: Ampicillin for GBS sepsis prophylaxis in active labor. Lab Results 10/03/24 09:00
[2024-10-03] MEDS: NIFEdipine ER 30 MG TABLET PO SCH ×2 (10:50→21:17)
[2024-10-03] MEDS: LABETALOL 100 MG TABLET PO SCH (10:50)
[2024-10-03] MEDS ORDERED: SERTRALINE 50 MG TABLET PO SCH ×2 (11:00)
[2024-10-03] MEDS: FAMOTIDINE 20 MG TABLET PO SCH (11:01)
[2024-10-03] MEDS: PRENATAL VITAMIN TABLET PO SCH (11:33)
--- NOTE | 2024-10-03 12:16 | PHARMACY PROGRESS NOTE ---
Best Possible Medication History Admit Date and Time: 10/03/24 0800 Home Medications Medication Instructions Recorded Confirmed Type vit no.95-ferrous 1 ea PO DAILY 03/05/24 10/03/24 History fumarate 28 mg-folic acid 800 mcg tablet acetaminophen 500 mg tablet 500 mg PO Q6H PRN fever or pain 05/23/24 10/03/24 History (Tylenol Extra Strength) aspirin 81 mg tablet,delayed 81 mg PO DAILY 05/23/24 10/03/24 History release (Adult Low Dose Aspirin) sertraline 100 mg tablet 100 mg PO DAILY #90 tabs 08/12/24 10/03/24 Rx famotidine 20 mg tablet See Rx Instructions .Route 09/14/24 10/03/24 Rx .COMPLEX #180 tabs nifedipine 30 mg tablet,extended 30 mg PO TID 09/14/24 10/03/24 History release labetalol 100 mg tablet 100 mg PO BID #60 tabs 09/25/24 10/03/24 Rx Processed by: Nursing (Nursing was asking about medications when I got to the room, came out with all written on post it note. ) Medications reviewed in ED?: No Medication History completed: Yes Secondary Source(s): Insurance records [facility] Statement: As the person ultimately responsible for medication therapy, providers are able to order a medication from an existing home medication list in [facility] via the "Reconcile Routine" prior to Confirmation of that medication by software support engineer. Such practice is discouraged except when the physician, in their clinical judgment, deems that a medical need exists for a medication without regard to previous use.
[2024-10-03] MEDS: SERTRALINE 50 MG TABLET PO SCH (21:17)
[2024-10-04] MEDS: SODIUM CHLORIDE FLUSH 0.9% 10 ML SYRINGE IVP SCH (07:31)
[2024-10-04 11:13] LABS: HCT - HEMATOCRIT 34.9 % (37.0-47.0); HGB - HEMOGLOBIN 11.5 g/dL (12.0-16.0); MEAN CORPUSCULAR HEMOGLOBIN 27.7 pg (27.0-31.0); MEAN CORPUSCULAR VOLUME 84.1 fL (81.0-99.0); RED BLOOD COUNT 4.15 10^6/uL (4.20-5.40); RED CELL DISTRIBUTION WIDTH 14.7 % (12.0-15.0); WHITE BLOOD COUNT 11.2 x10^3/uL (4.8-10.8)
[2024-10-04 11:24] LABS: ALBUMIN 3.5 g/dL (3.2-5.5); ALBUMIN/GLOBULIN RATIO 1.1 (1.0-2.2); BILIRUBIN,TOTAL 0.6 mg/dL (0.2-1.0); CALCIUM 9.7 mg/dL (8.5-10.3); CREATININE 0.7 mg/dL (0.6-1.3); POTASSIUM 3.9 mmol/L (3.5-4.5); TOTAL PROTEIN 6.8 g/dL (6.4-8.9)
[2024-10-04] MEDS: ACETAMINOPHEN 500 MG TABLET PO PRN (11:56)
--- NOTE | 2024-10-04 13:31 | PROVIDER PROGRESS NOTE ---
Labor Progress Note Labor Progress Note Labor Progress Note/Additional Text: S: Chary was evaluated at bedside at approximately 11am. Feeling some discomfort with contractions. Reports a new headache, /, would like some tylenol. O: VS reviewed in [facility] SVE: cervix difficult to reach and very anterior, can touch babies head with just tip of finger. Previously called 2cm, hard to assess with this exam but not more dilated than that. Discussed placement of cervical ripening balloon, and she did agree to proceed. Balloon placed with 80cc uterine/40cc vaginal with use of speculum. She did tolerate very well. monitoring: FHTs: 130s bpm baseline, + accel, - decel, mod variability [place]: 2-3 min, not always tracing well Cat 1 A/P: 29 yo at 37w0d undergoing IOL with: - cHTN - BMI 45 - Mild polyhydramnios - Suspected macrosomia - GBS + - s/p 150mcg misoprostol. Cervical ripening balloon placed, remove after 12 hours unless falls out sooner. We discussed possible pitocin 4 hrs prior to removal if not kristin regularly at that point. - BPs normal to mild range. Continue home labetolol and nifedipine doses. Repeat labs ordered today as no CMP on admission, normal. Will monitor headache. - Will start antibiotics for GBS prophylaxis once more active. Jalyn Mart MD
--- NOTE | 2024-10-05 00:02 | DELIVERY NOTE ---
Delivery Note Labor Labor: positive Augmented by ARM Delivery Method Delivery Method: positive Spontaneous vaginal delivery Cervical Ripening Method Cervical Ripening Method: positive Misoprostil Presentation Presentation: positive Vertex and JENNY - right occiput anterior Nuchal Cord Nuchal Cord: positive None Amniotic Fluid Description Amniotic Fluid Description: positive Clear Episiotomy Type Episiotomy Type: positive None Laceration Laceration: positive 2nd degree Suture Suture Size: positive 3-0 (Rapide) Delivery Outcome Delivery Date: 10/04/24 Delivery Time: 22:24 Delivery Outcome: positive Livebirth : positive Placed in direct skin contact with mother, Bulb syringe, Stimulated and Warmed [place] sex: positive Male Cord Cord: positive 3 vessels Placenta Placenta: positive Intact Estimated Blood Loss Estimated Blood Loss (in cc): 100 Post Delivery Events Post Delivery Events: positive No post delivery events Delivery Comments (Free Text/Narrative) Delivery Comments (Free Text/Narrative): I was called to the bedside for patient complete and ready to start pushing. The anterior shoulder delivered easily with maternal effort and gentle downward pressure followed by the posterior shoulder and the remainder of the body. The infant was placed on the mother's abdomen. After approximately 2 min, the cord was clamped times two and cut. Cord blood collected. Pitocin was started. The placenta was delivered intact. Good uterine tone noted. A 2nd degree perineal laceration was noted and repaired with 3-0 Rapide. Perineal hemostasis was noted at completion of procedure. Jalyn Mart MD
--- NOTE | 2024-10-05 00:33 | PROVIDER PROGRESS NOTE ---
Labor Progress Note Labor Progress Note Labor Progress Note/Additional Text: I have evaluated Stephanie at bedside multiple times since last evening. I removed cervical ripening balloon with RN at approximately midnight. Pitocin was started at 0315. SVE unchanged this morning at 0615 by RN exam after 6 hours on pitocin. She had a small amount of clear fluid with RN check at 0939, and ROM+ was performed and positive, however, she has not had any large gushes of fluid or continuous leaking so suspect small leak. Chary and I discussed attempt at AROM with next exam at around 12:50 but was unsuccessful, SVE still unchanged at that time. We discussed another attempt at AROM in approximately 2 hours. S: Currently, pitocin at 30. Chary overall still comfortable, feeling contractions just a little. Was able to get some sleep in the past few hours. Consented to attempting AROM again. O: VS reviewed in [facility] SVE: unchanged, very difficult to reach internal os due to position of cervix. With patient consent, Dr. Pearson attempted AROM and then I tried again, unsuccessful. monitoring: FHTs: 140s bpm baseline, + accel, - decel, mod variability [place]: q 1-2 min at time, but not painful for Chayr and mild on palpation by RN Cat 1 A/P: 29 yo at 37w0d undergoing IOL with: - cHTN - BMI 45 - Mild polyhydramnios - Suspected macrosomia - GBS + - Has been on pitocin for 12 hours, currently on 30 and feeling minimal discomfort with contractions. We have attempted AROM twice and unsuccessful. I discussed with Chary her goals for labor. She is hoping to avoid delivery unless absolutely necessary. I discussed with her that it is reasonable to consider with IOL since we have not been successful with AROM. After AROM, reasonable to continue pitocin for 12-24 hrs to try to achieve active labor. We also discussed that at any time, she can elect for delivery given the prolonged IOL. At this time, desires to continue with IOL. - Continue ampicillin - BPs normal to mild range. Will repeat CBC, CMP this afternoon. Jalyn Mart MD
[2024-10-05] MEDS: diphenhydrAMINE 25 MG CAPSULE PO ONE (00:50)
[2024-10-05] MEDS: OXYTOCIN/SODIUM CHLORIDE 500 ML IV SCH (02:45)
[2024-10-05] MEDS: ONDANSETRON 4 MG/2 ML VIAL IVP PRN (04:10)
[2024-10-05] MEDS: LABETALOL 100 MG TABLET PO SCH (09:26)
[2024-10-05 10:21] LABS: RUPTURE OF MEMBRANES PLUS POSITIVE (NEGATIVE)
[2024-10-05] MEDS: AMPICILLIN 2 GM in SODIUM CHLORIDE 0.9% MINIBAG 100 ML IV SCH (11:37)
[2024-10-05] MEDS ORDERED: AMPICILLIN 2 GM in SODIUM CHLORIDE 0.9% MINIBAG 100 ML IV ONE (11:37)
[2024-10-05] MEDS: fentaNYL 100 MCG/2 ML VIAL IVP PRN (12:47)
[2024-10-05] MEDS: AMPICILLIN 1 GM in SODIUM CHLORIDE 0.9% MINIBAG 100 ML IV SCH (16:06)
[2024-10-05 17:04] LABS: HCT - HEMATOCRIT 31.7 % (37.0-47.0); HGB - HEMOGLOBIN 10.5 g/dL (12.0-16.0); MEAN CORPUSCULAR HEMOGLOBIN 27.8 pg (27.0-31.0); MEAN CORPUSCULAR HGB CONC 33.1 g/dL (32.0-36.0); MEAN CORPUSCULAR VOLUME 83.9 fL (81.0-99.0); MEAN PLATELET VOLUME 10.3 fL (7.9-10.8); RED BLOOD COUNT 3.78 10^6/uL (4.20-5.40); RED CELL DISTRIBUTION WIDTH 14.6 % (12.0-15.0); WHITE BLOOD COUNT 10.2 x10^3/uL (4.8-10.8)
[2024-10-05 17:22] LABS: ALBUMIN 3.3 g/dL (3.2-5.5); ALBUMIN/GLOBULIN RATIO 1.1 (1.0-2.2); BILIRUBIN,TOTAL 0.5 mg/dL (0.2-1.0); CALCIUM 9.2 mg/dL (8.5-10.3); CREATININE 0.7 mg/dL (0.6-1.3); POTASSIUM 4.2 mmol/L (3.5-4.5); TOTAL PROTEIN 6.3 g/dL (6.4-8.9)
[2024-10-05] MEDS: ONDANSETRON ODT 4 MG TABLET TL PRN (19:46)
[2024-10-05] MEDS ORDERED: diphenhydrAMINE 25 MG CAPSULE PO PRN (21:37)
--- NOTE | 2024-10-05 21:37 | PROVIDER PROGRESS NOTE ---
Labor Progress Note Labor Progress Note Labor Progress Note/Additional Text: S: Chary seen at bedside again for AROM. She is feeling well. No ROSARIO, vision changes. Starting to feel more uncomfortable with contractions, more uncomfortable than she was during the day. Consents to trying AROM again. O: [facility] confirmed cephalic presentation. SVE: 3/30/high, still very difficult to reach head and initially unable to perform AROM. We then repositioned legs into McRobert's and was able to AROM with small amount of blood-tinged fluid. Cervix then 3.5cm. monitoring: FHTs: 150s bpm baseline, + accel, - decel, mod variability [place]: approximately every 7 min Cat 1 A/P: 29 yo at 37w0d undergoing IOL with: - cHTN - BMI 45 - Mild polyhydramnios - Suspected macrosomia - GBS + - Continue pitocin augmentation. Discussed placement of FSE and IUPC, however, currently monitoring FHTs and contractions well so Chary would like to wait. Plan for repeat SVE in 4-6 hours or sooner PRN. - Contine home labetalol and nifedipine doses. BPs currently normal to mild range. Asymptomatic. Repeat labs normal this afternoon. - Continue ampicillin. Jalyn Mart MD
[2024-10-05] MEDS: LACTATED RINGERS 1,000 ML IV PRN (22:35)
--- NOTE | 2024-10-06 05:17 | PROVIDER PROGRESS NOTE ---
Labor Progress Note Labor Progress Note Labor Progress Note/Additional Text: Up to 24 on pitocin, RN hasn't increased it further due to few late decelerations. Chary requested not to be awakened while sleeping. I saw patient at bedside, asked if we can repeat SVE to check on progress and did agree. S: Able to sleep overnight. Feeling increased pressure and lots of movement. O: VS reviewed in [facility] SVE: 3.5/50/high, forebag palpable which was ruptured with Ambars consent, much larger gush of clear fluid than last time. IUPC was placed with Chary's consent. monitoring: FHTs:130s bpm baseline, + accel, few late decelerations, mod variability [place]: 2-5 min Cat 2, overall reassuring Plan: Still in early labor with minimal cervical change. Large gush with rupture of forebag this check so hopefully this will help labor progress. IUPC was placed, will continue pitocin augmentation and titrate to adequate MVUs. Discussed repeat SVE in 4-6 hours to check on progress. Chary in agreement with plan. Jalyn Mart MD
--- NOTE | 2024-10-06 12:56 | PROVIDER PROGRESS NOTE ---
Labor Progress Note Uterine Monitoring Uterine Monitoring Mode: positive IUPC Contraction Frequency (min/apart): 2-4 Monitoring Monitor Mode: positive External ultrasound Heart Rate Baseline: 135 Heart Rate Variability: positive Moderate (6-25 bmp) Accelerations: positive Present, 15x15 Decelerations: positive Variable and Intermittent (<50% x20 min) Strip Review: positive Category II Vaginal Exam Dilation (in cm): 3 Effacement (%): 20 Station: -3 Labor Progress Note Labor Progress Note/Additional Text: IUPC was replaced earlier this morning as the previous wet come out. This has been a very long induction of labor well past normal. Had a high leak l yesterday, but after membrane rupture again at 8 PM. Minimal contractions on 20 of oxytocin, so was increased. IUPC replaced as we increase her oxytocin. Plan on max of 40. If unable to get regular contractions and cervical dilations at that point, will be approximately 24 hours post rupture and will likely need section. Ampicillin was started for GBS sepsis prophylaxis. Very rare deceleration, likely variable, but overall category 1.
--- NOTE | 2024-10-06 17:20 | PROVIDER PROGRESS NOTE ---
Labor Progress Note Uterine Monitoring Uterine Monitoring Mode: positive IUPC Contraction Frequency (min/apart): 2-4 Monitoring Monitor Mode: positive External ultrasound Heart Rate Baseline: 135 Heart Rate Variability: positive Moderate (6-25 bmp) Accelerations: positive Present, 15x15 Decelerations: positive None Strip Review: positive Category I Vaginal Exam Dilation (in cm): 3 Effacement (%): 50 Station: -3 Labor Progress Note Labor Progress Note/Additional Text: We have been struggling all day to get adequate contractions, and are never able to. She is now greater than 20 hours ruptured (possibly longer) she has been on high-dose oxytocin, at 40 units for several hours and has failed to change throughout the day. heart tracing remains category 1 which is very reassuring, but given the prolonged induction, prolonged time on oxytocin, and lack of cervical change, I recommended section. section was recommended. Risks, benefits and alternatives were discussed including but not limited to infection, bleeding that may require blood products or hysterectomy for life saving measures, injury to surrounding organs including but not limited to bowel, bladder, ureters, tubes and ovaries and/or the baby. Should injury occur it could require longer/additional surgery to repair. All patients questions were answered. Plan to proceed with primary low-transverse section. We did discuss the increased risk of hemorrhage after prolonged oxytocin, so discussed leaving oxytocin off as we prepare for surgery. Hopefully this allows time to washout receptors and decrease hemorrhage risk. Cannot have Methergine due to her blood pressure. Discussed other antihemorrhage methods.
--- NOTE | 2024-10-06 19:14 | ANESTHESIA PROCEDURE NOTE ---
Pre-Anesthesia VS, & Labs Diagnosis Surgical Diagnosis:: Failure for labor to progress Procedure Procedure: C Section Vitals Vital Signs: Temp Pulse Resp BP 36.8 C 99 16 130/91 H 10/03/24 08:03 10/03/24 08:03 10/03/24 08:03 10/03/24 08:03 Height (in): 6 ft Weight (kg): 151.9 kg Body Mass Index: 45.3 BMI Classification: Morbidly Obese NPO NPO: Other Last Fluid Intake: 1800 Last Food Intake: 1400 Is Patient ?: Yes Estimated Due Date:: 10/06/24 Lab Results Current Lab Results: Laboratory Tests 10/05/24 16:45: WBC 10.2, RBC 3.78 L, Hgb 10.5 L, Hct 31.7 L, MCV 83.9, MCH 27.8, MCHC 33.1, RDW 14.6, Plt Count 274, MPV 10.3, Sodium 134 L, Potassium 4.2, Chloride 106, Carbon Dioxide 20 L, Anion Gap 8.0, BUN 13, Creatinine 0.7, Estimated GFR (MDRD) 100, Glucose 102, Calcium 9.2, Total Bilirubin 0.5, AST 23, ALT 25, Alkaline Phosphatase 179 H, Total Protein 6.3 L, Albumin 3.3, Globulin 3.0, Albumin/Globulin Ratio 1.1 10/04/24 11:06: WBC 11.2 H, RBC 4.15 L, Hgb 11.5 L, Hct 34.9 L, MCV 84.1, MCH 27.7, MCHC 33.0, RDW 14.7, Plt Count 277, MPV 10.0, Sodium 133 L, Potassium 3.9, Chloride 104, Carbon Dioxide 20 L, Anion Gap 9.0, BUN 14, Creatinine 0.7, Estimated GFR (MDRD) 100, Glucose 115 H, Calcium 9.7, Total Bilirubin 0.6, AST 20, ALT 22, Alkaline Phosphatase 191 H, Total Protein 6.8, Albumin 3.5, Globulin 3.3, Albumin/Globulin Ratio 1.1 10/03/24 09:35: Blood Type O POSITIVE, Antibody Screen NEGATIVE 10/03/24 09:00: WBC 9.6, RBC 3.83 L, Hgb 10.6 L, Hct 32.4 L, MCV 84.6, MCH 27.7, MCHC 32.7, RDW 14.8, Plt Count 279, MPV 10.8, Neut # (Auto) 6.8 H, Lymph # (Auto) 1.8, [place] # (Auto) 0.8, Eos # (Auto) 0.1, Baso # (Auto) 0.0, Absolute Nucleated RBC 0.00, Nucleated RBC % 0.0 Lab results reviewed: Yes 10/05/24 16:45 10/05/24 16:45 Meds/Allgy Home Medications Ambulatory Orders Medication Instructions Recorded Confirmed vit no.95-ferrous 1 ea PO DAILY 03/05/24 10/03/24 fumarate 28 mg-folic acid 800 mcg tablet acetaminophen 500 mg tablet 500 mg PO Q6H PRN fever or pain 05/23/24 10/03/24 (Tylenol Extra Strength) aspirin 81 mg tablet,delayed 81 mg PO DAILY 05/23/24 10/03/24 release (Adult Low Dose Aspirin) sertraline 100 mg tablet 100 mg PO DAILY #90 tabs 08/12/24 10/03/24 famotidine 20 mg tablet See Rx Instructions .Route 09/14/24 10/03/24 .COMPLEX #180 tabs nifedipine 30 mg tablet,extended 30 mg PO TID 09/14/24 10/03/24 release labetalol 100 mg tablet 100 mg PO BID #60 tabs 09/25/24 10/03/24 Allergies Allergies Allergy/AdvReac Type Severity Reaction Status Date / Time shellfish derived Allergy Hives Verified 09/28/24 13:16 PFSH Active Problems All Active Problems (Updated 10/06/24 @ 19:13 by Bianca Sue) GBS (group B Streptococcus carrier), +RV culture, currently (Acute) 37 weeks gestation of (Acute) Supervision of high risk in third trimester (Acute) Obesity, Class III, BMI 40-49.9 (morbid obesity) (Acute) Polyhydramnios affecting in third trimester (Acute) Chronic hypertension affecting (Acute) Medical History Medical History (Updated 10/06/24 @ 19:13 by Bianca Sue) Asthma Supervision of high risk , unspecified, first trimester Obesity complicating in first trimester Anxiety associated with depression Dyspnea on exertion (12/24/22) Surgical History Surgical History History of removal of ovarian cyst Family History Family History Mother Mental disorder Diabetes Brother Mental disorder Maternal grandmother Mental disorder Thyroid disease Paternal grandmother Thyroid disease Breast cancer Congenital heart disease High blood pressure Father High blood pressure Social History Social History Smoking Status: Never smoker Do you dip or chew tobacco?: No Do you vape?: No Do you feel safe in your home environment?: Yes Suffered physical, verbal, emotional, or financial abuse?: No History of Abuse: No POLST Patient has POLST: No Anesthesia Exam (Expanded) Exam General: Alert and Oriented x3 Dental: WNL Mouth Opening: Greater than 4 Fingerbreadths Neck Mobility: Normal Mallampati classification: III Thyromental Distance: 4-6 cm Respiratory: No respiratory distress Cardiovascular: Regular rate Neurological: Normal speech Mental/Cognitive Status: Alert/Oriented X3 Cognitive Status: Within normal limits Plan Problem List (1) Supervision of high risk in third trimester: Plan: Admit to L&D, admit labs, admit for cervical ripening. If successful, we will proceed with labor management. Epidural at patient's request. Counseled on risk, benefits, alternatives of induction of labor including vaginal delivery, possible operative vaginal livery, possible section. Agree to plan to start induction with misoprostol for unfavorable cervix. (2) Obesity, Class III, BMI 40-49.9 (morbid obesity): Plan: Current BMI 45 (3) Polyhydramnios affecting in third trimester: Plan: Mild polyhydramnios. (4) Chronic hypertension affecting : Plan: Continue home labetalol and nifedipine.Mild elevation today no significant change. (5) 37 weeks gestation of : Plan: As above (6) GBS (group B Streptococcus carrier), +RV culture, currently : Plan: Ampicillin for GBS sepsis prophylaxis in active labor. (7) Asthma: (8) Obesity complicating in first trimester: (9) Anxiety associated with depression: (10) History of removal of ovarian cyst: Plan Anesthesia Type: Spinal and Transverse Abdominis Plane (TAP) Block Regional Block: Per Surgeon's request for Post Op pain control Consent for Procedure(s) Verified and Reviewed: Yes Code Status: Attempt Resuscitation ASA Classification ASA classification: 3-Severe systemic disease Is this case an emergency?: Yes
[2024-10-06] MEDS ORDERED: ceFAZolin 2 GM VIAL ONE (21:05)
[2024-10-06] MEDS ORDERED: ceFAZolin 1 GM VIAL ONE (21:05)
[2024-10-06] MEDS ORDERED: CITRIC ACID/SODIUM CITRATE 15 ML UDC PO ONE ×2 (21:06→21:45)
[2024-10-06] MEDS ORDERED: ceFAZolin 3 GM in SODIUM CHLORIDE 0.9% 100ML 100 ML IV ONE (21:45)
[2024-10-06] MEDS ORDERED: AZITHROMYCIN INJ 500 MG in SODIUM CHLORIDE 0.9% 250 ML IV SCH (21:45)
[2024-10-06] MEDS ORDERED: PHENYLEPHRINE HCL 0.5 MG/5 ML AMPULE ONE (22:03)
[2024-10-06] MEDS ORDERED: ONDANSETRON 4 MG/2 ML VIAL ONE (22:03)
[2024-10-06] MEDS ORDERED: ACETAMINOPHEN 1,000 MG/100 ML 1,000 MG/100 ML BAG IV ONE (22:03)
[2024-10-06] MEDS ORDERED: DEXMEDETOMIDINE 200 MCG/2 ML VIAL ONE (22:03)
[2024-10-06] MEDS ORDERED: fentaNYL 100 MCG/2 ML VIAL ONE (22:16)
[2024-10-06] MEDS ORDERED: OXYTOCIN 10 UNIT/ML VIAL ONE ×2 (22:16→22:34)
[2024-10-06] MEDS ORDERED: ePHEDrine 50 MG/ML VIAL IVP PRN (22:34)
[2024-10-06] MEDS ORDERED: ONDANSETRON 4 MG/2 ML VIAL IVP PRN (22:34)
[2024-10-06] MEDS ORDERED: ATROPINE ABBOJECT 1 MG/10 ML SYRINGE IVP PRN (22:34)
[2024-10-06] MEDS ORDERED: HYDROmorphone 0.5 MG/0.5 ML SYRINGE IVP PRN (22:34)
[2024-10-06] MEDS ORDERED: MORPHINE 2 MG/ML CARPUJECT IVP PRN (22:34)
[2024-10-06] MEDS ORDERED: NALOXONE 0.4 MG/ML VIAL IVP PRN (22:34)
[2024-10-06] MEDS ORDERED: METOCLOPRAMIDE 10 MG/2 ML VIAL IVP PRN (22:34)
[2024-10-06] MEDS ORDERED: SODIUM CHLORIDE 0.9% 10 ML VIAL ONE (22:43)
[2024-10-06] MEDS ORDERED: DEXAMETHASONE 4 MG/ML VIAL ONE (22:43)
[2024-10-06] MEDS ORDERED: ROPIVACAINE 0.5% PF 20 ML VIAL ONE (22:43)
[2024-10-06] MEDS ORDERED: OXYTOCIN/SODIUM CHLORIDE 500 ML IV PRN (22:59)
--- NOTE | 2024-10-06 23:04 | OPERATIVE REPORT ---
Operative Report General Admit Date: 10/03/24 Procedure Data: Operation Date: 10/06/24 21:15 Proposed Procedures Section - Bang Garnett MD Anesthesia Type Spinal Case Staff Anesthesia Provider: Glory Blakely Assisting Provider: Felipa Luong Case Times Procedure Start: 10/06/24 22:01 Procedure End: 10/06/24 22:33 Time out: 10/06/24 22:01 Pre-op diagnosis 37 weeks gestation Chronic hypertension, difficult to control Failed induction of labor Postop diagnosis Same Status post primary low-transverse section Delivery of live lara Procedure Note Intake, IV Amount (ml): 900 Estimated Blood Loss (ml): 800 Output, Urine Amount (ml): 50 Pathology: Placenta Findings: Large appearing, vigorous . Normal-appearing uterus, tubes, ovaries. Inverted uterus with strongly adherent placenta, but likely no accreta. Complications: None Other Other Information/Narrative: section was recommended. Risks, benefits and alternatives were discussed including but not limited to infection, bleeding that may require blood products or hysterectomy for life saving measures, injury to surrounding organs including but not limited to bowel, bladder, ureters, tubes and ovaries and/or the baby. Should injury occur it could require longer/additional surgery to repair. The patient stated understanding and desired to proceed. All questions were answered posed by patient. Prior to the section, she had a very long induction of labor with misoprostol followed by cervical ripening balloon, and eventual amniotomy. She received oxytocin and despite high doses for approximate 24 hours, did not become adequate and made no significant cervical change past 3 cm. Prior to being taken to the OR, 3 g of cefazolin and 500 mg of azithromycin were administered. The patient was taken to the operating room where regional anesthesia was found to be adequate. She was then prepared and draped in the usual sterile fashion in the dorsal supine position with a leftward tilt displacing the uterus. Masters was draining to gravity. SCDs were on bilateral lower extremities. Time out was taken. A pfannenstiel skin incision was then made with the scalpel and carried through to the underlying layer of fascia. The fascia was incised in the midline and the incision extended laterally with the Harper scissors. The superior aspect of the facial incision was then grasped with the Paula clamps, elevated and the underlying rectus muscles dissected off sharply. Attention was then turned to the inferior aspect of this incision which in a similar fashion was grasped, elevated with the Paula clamps and the rectus muscle dissected off sharply. The rectus muscles were in the midline. The peritoneum identified, grasped with the pick-ups and entered sharply with the Metzenbaum scissors. The peritoneal incision was then extended superiorly and inferiorly with good visualization of the bladder. The bladder blade was inserted. The vesicouterine peritoneum was identified, grasped with the pick-ups, and entered sharply with Metzenbaum scissors. This incision was then extended laterally and the bladder flap created digitally. The bladder blade was reinserted. The lower uterine segment was identified and incised in a transverse fashion with the scalpel. The uterine incision was then extended bluntly laterally. The bladder blade was removed. The fetus was in a cephalic presentation. The infants head delivered atraumatically. The anterior shoulders were delivered followed by the posterior shoulders then the remainder of the body. The infants mouth and nose were bulb suctioned. The umbilical cord was clamped times two and cut. The infant was handed to the pediatric team. The placenta was removed with gentle traction, but the uterus had an inversion and the placenta required manual removal as there was very little uterine tone. Oxytocin was added to the IV fluid and was allowed to run freely. While she was not hemorrhaging, the tone was very flaccid, so she received tranexamic acid in anticipation of the bleeding as well as Hemabate for the tone. She also had misoprostol for uterotonic's. The uterine incision was inspected and found to be without any extensions and was repaired with 0 Vicryl in a running, locked fashion. Upon inspection, the repaired hysterotomy was found to be hemostatic. Gutters were cleaned of blood. The uterus was firm and returned to the abdomen. The gutters were cleared of all clots and debris. The muscle layer was examined and found to be hemostatic. The fascia was reapproximated with 0 Vicryl in a running fashion. The subcutaneous tissue was closed with 2-0 Vicryl. The skin was closed in a subcuticular fashion with 4-0 Monocryl. The patient tolerated the procedure well. Sponge, lap and needle counts were correct times three. The patient was taken to the recovery room in stable condition. I appreciate the assistance of Dr. Felipa Luong during this procedure, and the assistance in retraction, visualization, dissection, and overall assistance during the case were instrumental to the patient's wellbeing.
[2024-10-06 23:50] LABS: BASOPHILS % (AUTO) 0.2 %; EOSINOPHILS # (AUTO) 0.1 10^3/uL (0.0-0.7); EOSINOPHILS % (AUTO) 0.9 %; HCT - HEMATOCRIT 30.2 % (37.0-47.0); HGB - HEMOGLOBIN 9.4 g/dL (12.0-16.0); LYMPHOCYTES # (AUTO) 2.1 10^3/uL (1.5-3.5); LYMPHOCYTES % (AUTO) 16.9 %; MEAN CORPUSCULAR HEMOGLOBIN 27.6 pg (27.0-31.0); MEAN CORPUSCULAR HGB CONC 31.1 g/dL (32.0-36.0); MEAN CORPUSCULAR VOLUME 88.6 fL (81.0-99.0); MEAN PLATELET VOLUME 10.7 fL (7.9-10.8); MONOCYTES # (AUTO) 0.9 10^3/uL (0.0-1.0); MONOCYTES % (AUTO) 7.4 %; NEUTROPHILS # (AUTO) 9.4 10^3/uL (1.5-6.6); NEUTROPHILS % (AUTO) 74.2 %; PLT - PLATELET COUNT 244 10^3/uL (130-450); RED BLOOD COUNT 3.41 10^6/uL (4.20-5.40); RED CELL DISTRIBUTION WIDTH 14.9 % (12.0-15.0); WHITE BLOOD COUNT 12.7 x10^3/uL (4.8-10.8)
--- NOTE | 2024-10-07 00:20 | PROVIDER PROGRESS NOTE ---
Subjective Subjective Subjective: BP stable and lightheadedness improved. Bleeding subsided. Had almost 600ml of clots expressed after surgery after episode of hypotension. Received vasopressors. Now stable. Current Medications Current Medications Current Medications: Current Medications Generic Name Dose Route Start Last Admin Trade Name Freq PRN Reason Stop Dose Admin Acetaminophen 1,000 mg 10/04/24 11:47 10/06/24 21:07 Acetaminophen 500 Mg Tablet PO 1,000 mg Q8HR PRN Administration Pain or Fever > 38C (100.4F) Acetaminophen 1,000 mg 10/07/24 00:00 Acetaminophen 500 Mg Tablet PO Q6HR MARY Atropine Sulfate 0.5 mg 10/06/24 22:34 Atropine Abboject 1 Mg/10 Ml Syringe IVP 10/07/24 22:34 Q5M PRN Bradycardia Carboprost Tromethamine 250 mcg 10/03/24 08:00 Carboprost Tromethamine 250 Mcg/Ml Vial IM 10/08/24 08:00 Q15M PRN Step 4: Hemorrhage protocol Docusate Sodium 100 mg 10/07/24 09:00 Docusate Sodium 100 Mg Capsule PO DAILY MARY Ephedrine Sulfate 10 mg 10/06/24 22:34 Ephedrine 50 Mg/Ml Vial IVP 10/07/24 22:34 Q5M PRN HYPOTENSION Famotidine 20 mg 10/03/24 11:00 10/06/24 08:58 Famotidine 20 Mg Tablet PO 20 mg BID MARY Administration Fentanyl 50 mcg 10/05/24 12:38 10/06/24 09:46 Fentanyl 100 Mcg/2 Ml Vial IVP 50 mcg Q2HR PRN Administration Severe Pain (Level 7-10) Fentanyl 25 - 50 mcg 10/06/24 22:34 Fentanyl 100 Mcg/2 Ml Vial IVP 10/07/24 22:34 Q5M PRN BREAKTHROUGH PAIN (2nd Choice) Hydralazine HCl 5 - 20 mg 10/03/24 08:00 Hydralazine Inj 20 Mg/Ml Vial IVP Q20M PRN SBP >160 or DBP >110 Protocol Hydralazine HCl 10 mg 10/03/24 08:00 Hydralazine Inj 20 Mg/Ml Vial IVP 10/08/24 08:00 .ONCE PRN Step 9 of Labetalol protocol Protocol Hydromorphone HCl 0.2 - 0.6 mg 10/06/24 22:34 Hydromorphone 0.5 Mg/0.5 Ml Syringe IVP 10/07/24 22:34 Q5M PRN PAIN (First Choice) Lactated Ringer's 1,000 mls @ 25 mls/hr 10/03/24 08:00 10/05/24 22:35 Lr IV 25 mls/hr .Q40H PRN Administration Save for active labor Oxytocin/Sodium Chloride 500 mls @ 999 mls/hr 10/03/24 08:00 Pitocin/Sodium Chloride IV 10/08/24 08:00 PRN PRN POST- HEMORR PREVENTION Protocol 999 MILLIUNIT/MIN Tranexamic Acid 1,000 mg in 100 mls @ 600 mls/hr 10/03/24 08:00 Tranexamic 1,000 Mg/100ml-Nacl IV 10/08/24 08:00 .ONCE PRN EBL >1200mL and within 3hr Lactated Ringer's 1,000 mls @ 999 mls/hr 10/03/24 08:00 Lr IV PRN PRN distress Oxytocin/Sodium Chloride 500 mls @ 1 mls/hr 10/04/24 19:00 10/06/24 17:08 Pitocin/Sodium Chloride IV 0 milliunit/min TITR MARY 0 mls/hr Titration Protocol 1 MILLIUNIT/MIN Ampicillin Sodium 1 gm/ Sodium 100 mls @ 200 mls/hr 10/05/24 16:00 10/06/24 15:59 Chloride IV 200 mls/hr Q4H MARY Administration Lactated Ringer's 1,000 mls @ 100 mls/hr 10/06/24 23:00 Lr IV 10/07/24 08:59 .Q10H MARY Oxytocin/Sodium Chloride 500 mls @ 999 mls/hr 10/06/24 22:59 Pitocin/Sodium Chloride IV PRN PRN POST- HEMORR PREVENTION Protocol 999 MILLIUNIT/MIN Lactated Ringer's 1,000 mls @ 100 mls/hr 10/06/24 23:00 Lr IV .Q10H MARY Ibuprofen 600 mg 10/08/24 00:00 Ibuprofen 600 Mg Tablet PO Q6HR MARY Ketorolac Tromethamine 30 mg 10/07/24 00:00 Ketorolac 30 Mg/Ml Vial IVP 10/07/24 12:01 Q6HR MARY Labetalol HCl 20 - 80 mg 10/03/24 08:00 Labetalol 20 Mg/4 Ml Syringe IVP Q10M PRN SBP >160 or DBP >110 Protocol Labetalol HCl 20 mg 10/03/24 08:00 Labetalol 20 Mg/4 Ml Syringe IVP 10/08/24 08:00 .ONCE PRN Step 9 of nifedipine protocol Protocol Labetalol HCl 40 mg 10/03/24 08:00 Labetalol 20 Mg/4 Ml Syringe IVP 10/08/24 08:00 .ONCE PRN Step 9 of hydrALAZine protocol Protocol Labetalol HCl 100 mg 10/05/24 09:00 10/06/24 09:00 Labetalol 100 Mg Tablet PO 100 mg BID MARY Administration Lidocaine HCl 20 ml 10/03/24 08:00 Lidocaine 1% 20 Ml Mdv ID 10/08/24 08:00 .ONCE PRN PERINEAL REPAIR Methylergonovine Maleate 0.2 mg 10/03/24 08:00 Methylergonovine 0.2 Mg/Ml Vial IM 10/08/24 08:00 .ONCE PRN Step 2: Hemorrhage protocol Metoclopramide HCl 10 mg 10/03/24 08:00 Metoclopramide 10 Mg Tablet PO Q6H PRN Nausea / Vomiting Metoclopramide HCl 10 mg 10/03/24 08:00 Metoclopramide 10 Mg/2 Ml Vial IVP Q6H PRN Nausea / Vomiting Metoclopramide HCl 10 mg 10/06/24 22:34 Metoclopramide 10 Mg/2 Ml Vial IVP Q6HR PRN N/V not relieved by Zofran Misoprostol 800 mcg 10/03/24 08:00 Misoprostol 200 Mcg Tablet BC 10/08/24 08:00 .ONCE PRN Step 3: Hemorrhage protocol Misoprostol 25 mcg 10/03/24 10:00 10/04/24 12:09 Misoprostol 100 Mcg Tablet VG Not Given Q4H MARY Morphine Sulfate 2 - 4 mg 10/06/24 22:34 Morphine 2 Mg/Ml Carpuject IVP 10/07/24 22:34 Q5M PRN PAIN (3rd Choice) Naloxone HCl 0.1 mg 10/06/24 22:34 Naloxone 0.4 Mg/Ml Vial IVP 10/07/24 22:34 Q2M PRN RESP RATE <8 Nifedipine 10 - 20 mg 10/03/24 08:00 Nifedipine 10 Mg Capsule PO Q20M PRN SBP >160 or DBP >110 Protocol Nifedipine 60 mg 10/03/24 21:00 10/05/24 20:56 Nifedipine Er 30 Mg Tablet PO 60 mg QPM MARY Administration Nifedipine 30 mg 10/03/24 11:00 10/06/24 09:00 Nifedipine Er 30 Mg Tablet PO 30 mg DAILY MARY Administration Ondansetron HCl 4 mg 10/03/24 08:00 10/05/24 04:10 Ondansetron 4 Mg/2 Ml Vial IVP 4 mg Q4HR PRN Administration Nausea / Vomiting Ondansetron HCl 4 mg 10/03/24 08:00 10/05/24 19:46 Ondansetron Odt 4 Mg Tablet TL 4 mg Q4HR PRN Administration Nausea / Vomiting Ondansetron HCl 4 mg 10/06/24 22:34 Ondansetron 4 Mg/2 Ml Vial IVP 10/07/24 22:34 ONCE PRN N/V (First Choice) Ondansetron HCl 4 mg 10/06/24 22:59 Ondansetron Odt 4 Mg Tablet TL Q4HR PRN Nausea / Vomiting Oxycodone HCl 5 mg 10/06/24 22:59 Oxycodone 5 Mg Tablet PO Q4HR PRN Moderate Pain (Level 4-6) Oxytocin 10 unit 10/03/24 08:00 Oxytocin 10 Unit/Ml Vial IM 10/08/24 08:00 .ONCE PRN Step one: If no IV access Multivit/Folic Acid/Iron 1 tab 10/03/24 11:00 10/06/24 07:53 Vitamin Tablet PO 1 tab DAILYWM MARY Administration Promethazine HCl 25 mg 10/03/24 08:00 Promethazine 25 Mg Tablet PO Q6H PRN Nausea / Vomiting Sertraline HCl 100 mg 10/03/24 21:00 10/05/24 20:56 Sertraline 50 Mg Tablet PO 100 mg HS MARY Administration Simethicone 80 mg 10/06/24 22:59 Simethicone Chew 80 Mg Tablet PO TID PRN Gas Sodium Chloride 10 ml 10/03/24 09:00 10/04/24 21:15 Sodium Chloride Flush 0.9% 10 Ml Syringe IVP 10 ml 0100,0900,1700 MARY Administration Sodium Chloride 10 ml 10/03/24 08:00 Sodium Chloride Flush 0.9% 10 Ml Syringe IVP PRN PRN NEEDED PER PROVIDER ORDERS Objective Vital Signs/Intake & Output Vital Signs: Vital Signs x48h Temp Pulse Resp BP Pulse Ox 10/06/24 23:25 86 14 66/54 L 98 10/06/24 23:10 36.6 C 122 H 14 83/48 L 95 Intake & Output: Intake & Output 10/04/24 10/05/24 10/06/24 10/07/24 23:59 23:59 23:59 23:59 Intake Total 564 / 564 3291 / 3291 Output Total 100 / 100 Balance 564 / 564 3191 / 3191 Weight (kg) 334 lb 14.115 oz Lab Results 10/06/24 23:33 10/05/24 16:45 Other Labs: Lab Results x24hrs 10/06/24 Range/Units 23:33 WBC 12.7 H (4.8-10.8) x10^3/uL RBC 3.41 L (4.20-5.40) 10^6/uL Hgb 9.4 L (12.0-16.0) g/dL Hct 30.2 L (37.0-47.0) % MCV 88.6 (81.0-99.0) fL MCH 27.6 (27.0-31.0) pg MCHC 31.1 L (32.0-36.0) g/dL RDW 14.9 (12.0-15.0) % Plt Count 244 (130-450) 10^3/uL MPV 10.7 (7.9-10.8) fL Neut # (Auto) 9.4 H (1.5-6.6) 10^3/uL Lymph # (Auto) 2.1 (1.5-3.5) 10^3/uL [place] # (Auto) 0.9 (0.0-1.0) 10^3/uL Eos # (Auto) 0.1 (0.0-0.7) 10^3/uL Baso # (Auto) 0.0 (0.0-0.1) 10^3/uL Absolute Nucleated RBC 0.00 x10^3/uL Nucleated RBC % 0.0 /100WBC Assessment/Plan Problem List (1) hemorrhage: Impression: 1400 blood loss between estimated and quantitative after delivery. Hypotension Resolved with fluids and vasopressors, now stable after expressing thoughts.Abnormal appearing telemetry from cardiac monitoring. EKG ordered. Stat H&H is stable, although likely artificially high. Qualifiers: hemorrhage type: third-stage Qualified Code(s): O72.0 - Third-stage hemorrhage (2) Chronic hypertension affecting : (3) Acute blood loss anemia: (4) Delivery by section:
--- NOTE | 2024-10-07 00:27 | ANESTHESIA POST OP EVALUATION ---
Anesthesia Post Eval Post Anesthesia Eval Vitals: Last Vital Signs Temp 36.6 C 10/06/24 23:10 Pulse 86 10/06/24 23:25 Resp 14 10/06/24 23:25 BP 66/54 L 10/06/24 23:25 Pulse Ox 98 10/06/24 23:25 CV Function Including HR & BP: Stable Pain Control: Satisfactory Nausea & Vomiting: Addtional Therapies Ordered Mental Status: Baseline Respiratory Status: Airway Patent Hydration Status: Satisfactory Anesthesia Complications: None
[2024-10-07] MEDS: KETOROLAC 30 MG/ML VIAL IVP SCH (00:30)
[2024-10-07] MEDS: fentaNYL 100 MCG/2 ML VIAL IVP PRN (00:30)
[2024-10-07] MEDS: LACTATED RINGERS 1,000 ML IV SCH ×2 (00:46→03:59)
[2024-10-07 01:04] LABS: CALCIUM 9.1 mg/dL (8.5-10.3); CREATININE 0.7 mg/dL (0.6-1.3); POTASSIUM 4.1 mmol/L (3.5-4.5)
[2024-10-07] MEDS: oxyCODONE 5 MG TABLET PO PRN (03:47)
[2024-10-07 05:47] LABS: BASOPHILS % (AUTO) 0.1 %; HCT - HEMATOCRIT 25.2 % (37.0-47.0); HGB - HEMOGLOBIN 8.1 g/dL (12.0-16.0); LYMPHOCYTES % (AUTO) 7.6 %; MEAN CORPUSCULAR HEMOGLOBIN 27.5 pg (27.0-31.0); MEAN CORPUSCULAR HGB CONC 32.1 g/dL (32.0-36.0); MEAN CORPUSCULAR VOLUME 85.4 fL (81.0-99.0); MEAN PLATELET VOLUME 10.6 fL (7.9-10.8); MONOCYTES # (AUTO) 0.4 10^3/uL (0.0-1.0); MONOCYTES % (AUTO) 2.9 %; NEUTROPHILS # (AUTO) 11.9 10^3/uL (1.5-6.6); PLT - PLATELET COUNT 219 10^3/uL (130-450); RED BLOOD COUNT 2.95 10^6/uL (4.20-5.40); RED CELL DISTRIBUTION WIDTH 14.6 % (12.0-15.0); WHITE BLOOD COUNT 13.4 x10^3/uL (4.8-10.8)
[2024-10-07] MEDS: DOCUSATE SODIUM 100 MG CAPSULE PO SCH (09:24)
[2024-10-07] MEDS: SIMETHICONE CHEW 80 MG TABLET PO PRN (09:24)
--- NOTE | 2024-10-07 12:27 | PROVIDER PROGRESS NOTE ---
Subjective Subjective Subjective: Subjective Patient reports she is doing well. Lochia appropriate. Denies heavy bleeding. Has not been out of bed, will try after lunch. Pelvic and abdominal pain well-controlled. Tolerating oral intake. Diet: Regular. Catheter in place. Passing flatus. Denies BM. Patient is bonding with baby in room Breast feeding going well. Denies feeling lightheaded, dizzy or excessively fatigued. Objective General: Alert, oriented, no apparent distress. Cardiovascular: Regular rate. Regular rhythm. Lungs: No increased work of breathing. Abdomen: Uterus firm. Below umbilicus. No guarding or rebound. Extremities: No pain on palpation. No cords palpated. Distal pulses intact. Incision: Bandage in place. Current Medications Current Medications Current Medications: Current Medications Generic Name Dose Route Start Last Admin Trade Name Freq PRN Reason Stop Dose Admin Acetaminophen 1,000 mg 10/07/24 00:00 Acetaminophen 500 Mg Tablet PO Q6HR MARY Carboprost Tromethamine 250 mcg 10/03/24 08:00 Carboprost Tromethamine 250 Mcg/Ml Vial IM 10/08/24 08:00 Q15M PRN Step 4: Hemorrhage protocol Docusate Sodium 100 mg 10/07/24 09:00 10/07/24 09:24 Docusate Sodium 100 Mg Capsule PO 100 mg DAILY MARY Administration Famotidine 20 mg 10/03/24 11:00 10/07/24 09:24 Famotidine 20 Mg Tablet PO 20 mg BID MARY Administration Fentanyl 50 mcg 10/05/24 12:38 10/06/24 09:46 Fentanyl 100 Mcg/2 Ml Vial IVP 50 mcg Q2HR PRN Administration Severe Pain (Level 7-10) Hydralazine HCl 5 - 20 mg 10/03/24 08:00 Hydralazine Inj 20 Mg/Ml Vial IVP Q20M PRN SBP >160 or DBP >110 Protocol Hydralazine HCl 10 mg 10/03/24 08:00 Hydralazine Inj 20 Mg/Ml Vial IVP 10/08/24 08:00 .ONCE PRN Step 9 of Labetalol protocol Protocol Tranexamic Acid 1,000 mg in 100 mls @ 600 mls/hr 10/03/24 08:00 Tranexamic 1,000 Mg/100ml-Nacl IV 10/08/24 08:00 .ONCE PRN EBL >1200mL and within 3hr Lactated Ringer's 1,000 mls @ 999 mls/hr 10/03/24 08:00 Lr IV PRN PRN distress Oxytocin/Sodium Chloride 500 mls @ 1 mls/hr 10/04/24 19:00 10/06/24 17:08 Pitocin/Sodium Chloride IV 0 milliunit/min TITR MARY 0 mls/hr Titration Protocol 1 MILLIUNIT/MIN Oxytocin/Sodium Chloride 500 mls @ 999 mls/hr 10/06/24 22:59 Pitocin/Sodium Chloride IV PRN PRN POST- HEMORR PREVENTION Protocol 999 MILLIUNIT/MIN Lactated Ringer's 1,000 mls @ 100 mls/hr 10/06/24 23:00 10/07/24 03:59 Lr IV 100 mls/hr .Q10H MARY Administration Azithromycin 500 mg/ Sodium 250 mls @ 250 mls/hr 10/06/24 21:45 Chloride IV 10/07/24 21:44 ONCE MARY Ibuprofen 600 mg 10/08/24 00:00 Ibuprofen 600 Mg Tablet PO Q6HR MARY Labetalol HCl 20 - 80 mg 10/03/24 08:00 Labetalol 20 Mg/4 Ml Syringe IVP Q10M PRN SBP >160 or DBP >110 Protocol Labetalol HCl 20 mg 10/03/24 08:00 Labetalol 20 Mg/4 Ml Syringe IVP 10/08/24 08:00 .ONCE PRN Step 9 of nifedipine protocol Protocol Labetalol HCl 40 mg 10/03/24 08:00 Labetalol 20 Mg/4 Ml Syringe IVP 10/08/24 08:00 .ONCE PRN Step 9 of hydrALAZine protocol Protocol Labetalol HCl 100 mg 10/05/24 09:00 10/07/24 09:24 Labetalol 100 Mg Tablet PO 100 mg BID MARY Administration Lidocaine HCl 20 ml 10/03/24 08:00 Lidocaine 1% 20 Ml Mdv ID 10/08/24 08:00 .ONCE PRN PERINEAL REPAIR Methylergonovine Maleate 0.2 mg 10/03/24 08:00 Methylergonovine 0.2 Mg/Ml Vial IM 10/08/24 08:00 .ONCE PRN Step 2: Hemorrhage protocol Metoclopramide HCl 10 mg 10/03/24 08:00 Metoclopramide 10 Mg Tablet PO Q6H PRN Nausea / Vomiting Metoclopramide HCl 10 mg 10/03/24 08:00 Metoclopramide 10 Mg/2 Ml Vial IVP Q6H PRN Nausea / Vomiting Misoprostol 800 mcg 10/03/24 08:00 Misoprostol 200 Mcg Tablet BC 10/08/24 08:00 .ONCE PRN Step 3: Hemorrhage protocol Nifedipine 10 - 20 mg 10/03/24 08:00 Nifedipine 10 Mg Capsule PO Q20M PRN SBP >160 or DBP >110 Protocol Nifedipine 60 mg 10/03/24 21:00 10/07/24 03:40 Nifedipine Er 30 Mg Tablet PO Not Given QPM MARY Nifedipine 30 mg 10/03/24 11:00 10/07/24 09:24 Nifedipine Er 30 Mg Tablet PO 30 mg DAILY MARY Administration Ondansetron HCl 4 mg 10/06/24 22:59 Ondansetron Odt 4 Mg Tablet TL Q4HR PRN Nausea / Vomiting Oxycodone HCl 5 mg 10/06/24 22:59 10/07/24 09:13 Oxycodone 5 Mg Tablet PO 5 mg Q4HR PRN Administration Moderate Pain (Level 4-6) Oxytocin 10 unit 10/03/24 08:00 Oxytocin 10 Unit/Ml Vial IM 10/08/24 08:00 .ONCE PRN Step one: If no IV access Multivit/Folic Acid/Iron 1 tab 10/03/24 11:00 10/07/24 09:24 Vitamin Tablet PO 1 tab DAILYWM MARY Administration Promethazine HCl 25 mg 10/03/24 08:00 Promethazine 25 Mg Tablet PO Q6H PRN Nausea / Vomiting Sertraline HCl 100 mg 10/03/24 21:00 10/07/24 03:50 Sertraline 50 Mg Tablet PO 100 mg HS MARY Administration Simethicone 80 mg 10/06/24 22:59 10/07/24 09:24 Simethicone Chew 80 Mg Tablet PO 80 mg TID PRN Administration Gas Sodium Chloride 10 ml 10/03/24 09:00 10/07/24 11:29 Sodium Chloride Flush 0.9% 10 Ml Syringe IVP Not Given 0100,0900,1700 MARY Sodium Chloride 10 ml 10/03/24 08:00 Sodium Chloride Flush 0.9% 10 Ml Syringe IVP PRN PRN NEEDED PER PROVIDER ORDERS Objective Vital Signs/Intake & Output Vital Signs: Vital Signs x48h Temp Pulse Resp BP Pulse Ox 10/07/24 08:52 37.4 C 88 18 131/65 H 96 10/07/24 05:10 90 18 134/70 H 97 Intake & Output: Intake & Output 10/04/24 10/05/24 10/06/24 10/07/24 23:59 23:59 23:59 23:59 Intake Total 564 / 564 3491 / 3491 1100 / 1100 Output Total 100 / 100 600 / 600 Balance 564 / 564 3391 / 3391 500 / 500 Weight (kg) 334 lb 14.115 oz Lab Results 10/07/24 05:32 10/07/24 00:38 Other Labs: Lab Results x24hrs 10/07/24 10/07/24 10/07/24 Range/Units 08:43 05:32 00:38 WBC 13.4 H (4.8-10.8) x10^3/uL RBC 2.95 L (4.20-5.40) 10^6/uL Hgb 8.1 L (12.0-16.0) g/dL Hct 25.2 L (37.0-47.0) % MCV 85.4 (81.0-99.0) fL MCH 27.5 (27.0-31.0) pg MCHC 32.1 (32.0-36.0) g/dL RDW 14.6 (12.0-15.0) % Plt Count 219 (130-450) 10^3/uL MPV 10.6 (7.9-10.8) fL Neut # (Auto) 11.9 H (1.5-6.6) 10^3/uL Lymph # (Auto) 1.0 L (1.5-3.5) 10^3/uL [place] # (Auto) 0.4 (0.0-1.0) 10^3/uL Eos # (Auto) 0.0 (0.0-0.7) 10^3/uL Baso # (Auto) 0.0 (0.0-0.1) 10^3/uL Absolute Nucleated RBC 0.00 x10^3/uL Nucleated RBC % 0.0 /100WBC Sodium 137 (135-145) mmol/L Potassium 4.1 (3.5-4.5) mmol/L Chloride 108 (101-111) mmol/L Carbon Dioxide 18 L (21-32) mmol/L Anion Gap 11.0 (6-13) BUN 13 (6-20) mg/dL Creatinine 0.7 (0.6-1.3) mg/dL Estimated GFR (MDRD) 100 (>89) Glucose 96 (74-104) mg/dL POC Whole Bld Glucose 56 (70-100) mg/dL Calcium 9.1 (8.5-10.3) mg/dL 10/06/24 Range/Units 23:33 WBC 12.7 H (4.8-10.8) x10^3/uL RBC 3.41 L (4.20-5.40) 10^6/uL Hgb 9.4 L (12.0-16.0) g/dL Hct 30.2 L (37.0-47.0) % MCV 88.6 (81.0-99.0) fL MCH 27.6 (27.0-31.0) pg MCHC 31.1 L (32.0-36.0) g/dL RDW 14.9 (12.0-15.0) % Plt Count 244 (130-450) 10^3/uL MPV 10.7 (7.9-10.8) fL Neut # (Auto) 9.4 H (1.5-6.6) 10^3/uL Lymph # (Auto) 2.1 (1.5-3.5) 10^3/uL [place] # (Auto) 0.9 (0.0-1.0) 10^3/uL Eos # (Auto) 0.1 (0.0-0.7) 10^3/uL Baso # (Auto) 0.0 (0.0-0.1) 10^3/uL Absolute Nucleated RBC 0.00 x10^3/uL Nucleated RBC % 0.0 /100WBC Sodium (135-145) mmol/L Potassium (3.5-4.5) mmol/L Chloride (101-111) mmol/L Carbon Dioxide (21-32) mmol/L Anion Gap (6-13) BUN (6-20) mg/dL Creatinine (0.6-1.3) mg/dL Estimated GFR (MDRD) (>89) Glucose (74-104) mg/dL POC Whole Bld Glucose (70-100) mg/dL Calcium (8.5-10.3) mg/dL Assessment/Plan Problem List (1) Delivery by section: Impression: Routine postoperative care. Repeat care. Anticipate discharge in 2 days. (2) hemorrhage: Impression: H/H today 8.07/22, preoperatively 10.5. No symptoms of hypovolemia, but has not been up and walking yet. Will assess once moving. Blood pressure normal today. Qualifiers: hemorrhage type: third-stage Qualified Code(s): O72.0 - Third-stage hemorrhage (3) Chronic hypertension affecting : Impression: Skipped last night's dose due to hypotension after delivery, but this is resolved. Received a.m. medications (4) Acute blood loss anemia: Impression: Stable job. Will monitor for signs of symptoms
[2024-10-07] MEDS: ONDANSETRON ODT 4 MG TABLET TL PRN (13:32)
[2024-10-07] MEDS: ACETAMINOPHEN 500 MG TABLET PO SCH (16:39)
[2024-10-07] MEDS: IBUPROFEN 600 MG TABLET PO SCH (18:03)
[2024-10-08 05:46] LABS: BASOPHILS % (AUTO) 0.2 %; EOSINOPHILS # (AUTO) 0.1 10^3/uL (0.0-0.7); EOSINOPHILS % (AUTO) 1.3 %; HGB - HEMOGLOBIN 7.2 g/dL (12.0-16.0); LYMPHOCYTES # (AUTO) 3.4 10^3/uL (1.5-3.5); LYMPHOCYTES % (AUTO) 32.6 %; MEAN CORPUSCULAR HEMOGLOBIN 27.5 pg (27.0-31.0); MEAN CORPUSCULAR HGB CONC 31.3 g/dL (32.0-36.0); MEAN CORPUSCULAR VOLUME 87.8 fL (81.0-99.0); MONOCYTES # (AUTO) 0.9 10^3/uL (0.0-1.0); NEUTROPHILS # (AUTO) 5.8 10^3/uL (1.5-6.6); NEUTROPHILS % (AUTO) 56.2 %; PLT - PLATELET COUNT 224 10^3/uL (130-450); RED BLOOD COUNT 2.62 10^6/uL (4.20-5.40); RED CELL DISTRIBUTION WIDTH 15.4 % (12.0-15.0); WHITE BLOOD COUNT 10.4 x10^3/uL (4.8-10.8)
--- NOTE | 2024-10-08 10:40 | PROVIDER PROGRESS NOTE ---
Subjective Subjective Subjective: Patient reports she is doing well. Lochia appropriate. Denies heavy bleeding. Ambulating. Pelvic and abdominal pain well-controlled. Tolerating oral intake. Diet: Regular. Voiding without difficulty. Passing flatus. Denies BM. Patient is bonding with baby in room Breast feeding going well. Denies feeling lightheaded, dizzy or excessively fatigued. Current Medications Current Medications Current Medications: Current Medications Generic Name Dose Route Start Last Admin Trade Name Freq PRN Reason Stop Dose Admin Acetaminophen 1,000 mg 10/07/24 00:00 10/08/24 05:16 Acetaminophen 500 Mg Tablet PO 1,000 mg Q6HR MARY Administration Docusate Sodium 100 mg 10/07/24 09:00 10/08/24 08:56 Docusate Sodium 100 Mg Capsule PO 100 mg DAILY MARY Administration Famotidine 20 mg 10/03/24 11:00 10/08/24 08:56 Famotidine 20 Mg Tablet PO 20 mg BID MARY Administration Hydralazine HCl 5 - 20 mg 10/03/24 08:00 Hydralazine Inj 20 Mg/Ml Vial IVP Q20M PRN SBP >160 or DBP >110 Protocol Ibuprofen 600 mg 10/07/24 18:00 10/08/24 05:13 Ibuprofen 600 Mg Tablet PO 600 mg Q6HR MARY Administration Labetalol HCl 20 - 80 mg 10/03/24 08:00 Labetalol 20 Mg/4 Ml Syringe IVP Q10M PRN SBP >160 or DBP >110 Protocol Labetalol HCl 100 mg 10/05/24 09:00 10/08/24 08:56 Labetalol 100 Mg Tablet PO 100 mg BID MARY Administration Metoclopramide HCl 10 mg 10/03/24 08:00 Metoclopramide 10 Mg Tablet PO Q6H PRN Nausea / Vomiting Metoclopramide HCl 10 mg 10/03/24 08:00 Metoclopramide 10 Mg/2 Ml Vial IVP Q6H PRN Nausea / Vomiting Nifedipine 10 - 20 mg 10/03/24 08:00 Nifedipine 10 Mg Capsule PO Q20M PRN SBP >160 or DBP >110 Protocol Nifedipine 60 mg 10/03/24 21:00 10/07/24 21:06 Nifedipine Er 30 Mg Tablet PO 60 mg QPM MARY Administration Nifedipine 30 mg 10/03/24 11:00 10/08/24 08:56 Nifedipine Er 30 Mg Tablet PO 30 mg DAILY MARY Administration Ondansetron HCl 4 mg 10/06/24 22:59 10/07/24 13:32 Ondansetron Odt 4 Mg Tablet TL 4 mg Q4HR PRN Administration Nausea / Vomiting Oxycodone HCl 5 mg 10/06/24 22:59 10/08/24 08:56 Oxycodone 5 Mg Tablet PO 5 mg Q4HR PRN Administration Moderate Pain (Level 4-6) Multivit/Folic Acid/Iron 1 tab 10/03/24 11:00 10/08/24 08:56 Vitamin Tablet PO 1 tab DAILYWM MARY Administration Promethazine HCl 25 mg 10/03/24 08:00 Promethazine 25 Mg Tablet PO Q6H PRN Nausea / Vomiting Sertraline HCl 100 mg 10/03/24 21:00 10/07/24 21:06 Sertraline 50 Mg Tablet PO 100 mg HS MARY Administration Simethicone 80 mg 10/06/24 22:59 10/08/24 08:55 Simethicone Chew 80 Mg Tablet PO 80 mg TID PRN Administration Gas Sodium Chloride 10 ml 10/03/24 08:00 Sodium Chloride Flush 0.9% 10 Ml Syringe IVP PRN PRN NEEDED PER PROVIDER ORDERS Objective Vital Signs/Intake & Output Vital Signs: Vital Signs x48h Temp Pulse Resp BP BP Pulse Ox 10/08/24 08:54 36.5 C 92 17 134/72 H 100 10/08/24 05:02 36.7 C 111 H 18 112/63 98 Intake & Output: Intake & Output 10/05/24 10/06/24 10/07/24 10/08/24 23:59 23:59 23:59 23:59 Intake Total 564 / 564 3491 / 3491 1300 / 1300 Output Total 100 / 100 4750 / 4750 Balance 564 / 564 3391 / 3391 -3450 / -3450 Weight (kg) 334 lb 14.115 oz Objective Comments/Other: General: Alert, oriented, no apparent distress. Cardiovascular: Regular rate. Regular rhythm. Lungs: No increased work of breathing. Abdomen: Uterus firm. Below umbilicus. No guarding or rebound. Extremities: No pain on palpation. No cords palpated. Distal pulses intact. Incision: Clean, dry, and intact. Lab Results 10/08/24 05:36 10/07/24 00:38 Other Labs: Lab Results x24hrs 10/08/24 Range/Units 05:36 WBC 10.4 (4.8-10.8) x10^3/uL RBC 2.62 L (4.20-5.40) 10^6/uL Hgb 7.2 L (12.0-16.0) g/dL Hct 23.0 L (37.0-47.0) % MCV 87.8 (81.0-99.0) fL MCH 27.5 (27.0-31.0) pg MCHC 31.3 L (32.0-36.0) g/dL RDW 15.4 H (12.0-15.0) % Plt Count 224 (130-450) 10^3/uL MPV 10.0 (7.9-10.8) fL Neut # (Auto) 5.8 (1.5-6.6) 10^3/uL Lymph # (Auto) 3.4 (1.5-3.5) 10^3/uL [place] # (Auto) 0.9 (0.0-1.0) 10^3/uL Eos # (Auto) 0.1 (0.0-0.7) 10^3/uL Baso # (Auto) 0.0 (0.0-0.1) 10^3/uL Absolute Nucleated RBC 0.00 x10^3/uL Nucleated RBC % 0.0 /100WBC Assessment/Plan Problem List (1) Delivery by section: Impression: Routine postoperative care. Routine care. Anticipate discharge tomorrow. (2) Chronic hypertension affecting : Impression: Continue home medications. Blood pressure under good control. (3) hemorrhage: Impression: Iron infusion today Qualifiers: hemorrhage type: third-stage Qualified Code(s): O72.0 - Third-stage hemorrhage (4) Acute blood loss anemia: Impression: As above
[2024-10-08] MEDS: FERRIC GLUCONATE 125 MG in SODIUM CHLORIDE 0.9% 100ML 100 ML IV ONE (13:51)
[2024-10-09 05:31] LABS: BASOPHILS % (AUTO) 0.4 %; EOSINOPHILS # (AUTO) 0.2 10^3/uL (0.0-0.7); EOSINOPHILS % (AUTO) 2.2 %; HCT - HEMATOCRIT 24.4 % (37.0-47.0); HGB - HEMOGLOBIN 7.8 g/dL (12.0-16.0); LYMPHOCYTES # (AUTO) 3.2 10^3/uL (1.5-3.5); LYMPHOCYTES % (AUTO) 32.9 %; MEAN CORPUSCULAR VOLUME 87.5 fL (81.0-99.0); MEAN PLATELET VOLUME 10.2 fL (7.9-10.8); MONOCYTES # (AUTO) 0.7 10^3/uL (0.0-1.0); MONOCYTES % (AUTO) 7.2 %; NEUTROPHILS # (AUTO) 5.4 10^3/uL (1.5-6.6); NEUTROPHILS % (AUTO) 56.2 %; PLT - PLATELET COUNT 238 10^3/uL (130-450); RED BLOOD COUNT 2.79 10^6/uL (4.20-5.40); RED CELL DISTRIBUTION WIDTH 15.8 % (12.0-15.0); WHITE BLOOD COUNT 9.6 x10^3/uL (4.8-10.8)
[2024-10-09 08:14] VITALS: BP 127/83; TEMP 97.5; O2SAT 100
--- NOTE | 2024-10-09 11:24 | Labor Flowsheet ---
Labor Flowsheet Datetime Report Generated by CPN: 10/09/2024 11:23 Datetime: 10/09/2024 08:13 VITAL SIGNS NBP Sys/Diane/Mean (mmHg): 127 : 83 : 92 Pulse: 89 LaborFlag: Labor Datetime: 10/09/2024 04:44 SpO2 (%): 97 Datetime: 10/06/2024 21:10 UTERINE ACTIVITY Monitor Mode: External Frequency (min): irreg Quality: Mild Duration (sec): 40-60 Pattern: Normal: <= 5 Contractions in 10 Minutes Resting Tone (Palpate): Relaxed ASSESSMENT A Monitor Mode: Telemetry FHR Baseline Rate : 150 FHR Baseline Changes: No Baseline Change Variability: Moderate 6-25 bpm Accelerations: 15X15 Datetime: 10/06/2024 18:43 Respirations: 16 Temperature (C): 37.1 Headache: Denies Datetime: 10/06/2024 18:39 Decelerations: None Category: Category I PATIENT CARE Oxygen Method: Room Air Datetime: 10/06/2024 17:57 Stage of : Labor Contraction Comments: ctx less frequent Strip Reviewed by: [email or web address] COMMUNICATION Communication: RN at Bedside Notification Reason: Status Update; Other Communication Comments: more c/s information, post op pain discussed Datetime: 10/06/2024 17:11 Teaching Comments: post op pain/tap block Datetime: 10/06/2024 17:08 TEACHING Instructional Method: Patient Instructed; Family/Support Person Instructed Plan of Care: Plan of Care Discussed; C/S Delivery Datetime: 10/06/2024 17:07 MEDICATIONS Pitocin (milliunits): Discontinued Medication Comments: pitocin off prior to unplanned c/s Datetime: 10/06/2024 17:05 VAGINAL EXAM Dilatation (cm): 3.5 Effacement (%): 60 Station: -3 Exam by: Dr Garnett Vaginal Bleeding: None Cervix, Consistency: Moderate Cervix, Position: Posterior Datetime: 10/06/2024 16:53 Patient Care Comments: sitting in rocking chair Datetime: 10/06/2024 16:21 Resting Tone IUP (mmHg): 15 Intensity IUP (mmHg): 35 [place] Units (mmHg): 95 Datetime: 10/06/2024 15:48 PAIN Pain Scale: 6 Pain Presence: Intermittent Pain Type: Cramping; Contraction; Pressure Pain Location: Abdomen; Perineum Pain Goal: 6 Pain Coping: Talking Through Contractions Pain Assessment Comments: working well with ctx Comfort Measures: Rocking Chair; Family Support Datetime: 10/06/2024 15:18 Monitor Interventions for UA: IUPC Inserted Datetime: 10/06/2024 14:58 I/O Interventions: Up to BR Datetime: 10/06/2024 14:17 Pain Relief Measures: Comfort Measures Membrane Status: Ruptured Membranes Rupture Method: Artificial Amniotic Fluid Color: Clear Amniotic Fluid Amount: Scant Amniotic Fluid Odor: Normal Patient Position/Activity: Left Lateral Datetime: 10/06/2024 13:58 Provider Reviewed Strip: Yes Datetime: 10/06/2024 12:25 Monitor Interventions for FHR: Ultrasound Adjusted Datetime: 10/06/2024 10:34 Hygiene: Underpad Changed; Peripad Changed Datetime: 10/06/2024 10:27 Comments: monitors exchanged, and reset Datetime: 10/06/2024 08:32 Actions for Decelerations: Other Datetime: 10/06/2024 06:45 Pitocin Checklist: At Least 1 Acceleration of 15 bpm x 15 Seconds in 30 Minutes or Adequate Variabi lity; No More than 1 Late Deceleration Occurred in Past 30 Minutes; No More than 2 Variable Decelerat ions > 60 Seconds in Duration and decreasing >60 bpm in 30 minutes; No More than 5 Uterine Contractio ns in 10 Minutes for any 20 Minute Interval; Uterus Palpates Soft between Contractions Datetime: 10/05/2024 23:41 Temperature Route: Oral Datetime: 10/05/2024 22:30 Membrane Comments: pink tinged fluid dripping on towel as pt is moving. offered pt underwear, pt de clined. Datetime: 10/05/2024 21:00 Analgesics/Sedatives: Fentanyl (mcg) @ 50 Datetime: 10/05/2024 09:40 Membranes Ruptured Date/Time: 10/05/2024 06:20 Datetime: 10/04/2024 21:04 Magnesium/Antihypertensives: Procardia PO (mg) @ 60mg PO Antiemetics/Antacids: Pepcid PO (mg) @ 20mg Datetime: 10/04/2024 21:01 Vital Sign Comments: Elevated bilaterally but due for her CHTN meds at this time MATERNAL ASSESSMENT Level of Consciousness: Alert DTR's/Clonus: DTRs 1+; No Clonus Breath Sounds, Left: Clear and Equal Breath Sounds, Right: Clear and Equal RUQ Epigastric Pain: Denies Maternal Comments: mild ROSARIO below eyes bilateral, states it feels like her sinuses hurt Datetime: 10/04/2024 21:00 Unit Routine: Unit Personnel; Monitoring; Safety/Fall Risk Prevention; Medications Labor/Induction: Cervical Ripening; Activity Pain Management: PRN Medications; Pain Scale/Goals; Comfort Measures Datetime: 10/04/2024 11:07 Vaginal Exam Comments: discussing pack balloon Datetime: 10/04/2024 06:09 Cervical Ripening Agents: Pack Balloon; Cytotec @ Datetime: 10/04/2024 05:30 Nausea/Vomiting: Denies
--- NOTE | 2024-10-09 21:10 | Discharge Summary ---
"Discharge Summary Admit Date: 10/03/24 Discharge Date: 10/09/24 Discharging Provider: Felipa Luong MD Code Status: Attempt Resuscitation DIAGNOSES Admission Diagnoses: admitted for labor induction at 37 weeks due to diffcult to control htn. now on nifedipine 30 mg in am, 60 in pm and labetolol 100 mg bid. no signs or sx of preE otherwise. Also polyhydramnios and baby > 99 %ile on US. GBS +. Discharge Diagnoses with Status of Each Condition: bp controlled failure to get into labor and so c section was performed. baby was macrosomic. acute blood loss anemia stable. HPI History of Present Illness: 29 yo with first baby. admitted at 37 weeks for induction for htn. was seen at for consultatation. CONSULTS | PROCEDURES Procedures: labor induction, c section HOSPITAL COURSE Hospital Course: Patient admitted for labor induction. had misoprostol. pitocin, arom. Pitocin up to 30 and never got into labor after many days. Decision made to do C section. This was performed without complication. After delivery she had increased bleeding, then improved. did well. IV iron given. Discharge home on PPD #3. very stable. BPs are good. ALLERGIES Allergies Allergy/AdvReac Type Severity Reaction Status Date / Time shellfish derived Allergy Hives Verified 09/28/24 13:16 MEDICATIONS Ambulatory Orders Medication Instructions Recorded Confirmed vit no.95-ferrous 1 ea PO DAILY 03/05/24 10/03/24 fumarate 28 mg-folic acid 800 mcg tablet acetaminophen 500 mg tablet 500 mg PO Q6H PRN fever or pain 05/23/24 10/03/24 (Tylenol Extra Strength) sertraline 100 mg tablet 100 mg PO DAILY #90 tabs 08/12/24 10/03/24 famotidine 20 mg tablet See Rx Instructions .Route 09/14/24 10/03/24 .COMPLEX #180 tabs docusate sodium 100 mg capsule 100 mg PO BID PRN constipation #60 10/09/24 (Colace) caps ferrous sulfate 325 mg (65 mg 325 mg PO Q OTHER DAY #90 tabs 10/09/24 iron) tablet (FeroSul) nifedipine 30 mg tablet,extended 30 mg PO BID #60 tabs 10/09/24 release oxycodone 5 mg tablet 5 mg PO Q4H PRN pain #10 tabs 10/09/24 polyethylene glycol 3350 17 17 g PO QDAY PRN constipation #510 10/09/24 gram/dose oral powder (Miralax) grams PHYSICAL EXAM AT DISCHARGE Vital Signs: stable, no htn General Appearance: positive No acute distress and Alert Respiratory: positive No respiratory distress Cardiovascular: positive Regular rate & rhythm Abdomen: positive Other (appropriately tender. wound healing well. steristrips, no erythema.) Extremities: positive Non-tender and Other (edema increasing up into thighs. ) Neurologic/Psychiatric: positive Oriented x3 and Mood/affect nml LABS 10/09/24 05:22 10/07/24 00:38 FOLLOW UP Follow Up: later this week for bp check. TIME SPENT Time Spent in Discharge (Minutes): 30 Discharge Plan Discharge Patient Disposition: Home, Self Care Condition: Stable Prescriptions: Continued sertraline 100 mg tablet 100 mg PO DAILY Qty: 90 3RF famotidine 20 mg tablet See Rx Instructions .ROUTE .COMPLEX Qty: 180 0RF Dose Instruction: TAKE 1 TABLET BY MOUTH TWICE DAILY Rx Instructions: TAKE 1 TABLET BY MOUTH TWICE DAILY nifedipine 30 mg tablet extended release 30 mg PO BID Qty: 60 2RF docusate sodium [Colace] 100 mg capsule 100 mg PO BID PRN (Reason: constipation) Qty: 60 1RF ferrous sulfate [FeroSul] 325 mg (65 mg iron) tablet 325 mg PO Q OTHER DAY Qty: 90 0RF oxycodone 5 mg tablet 5 mg PO Q4H PRN (Reason: pain) Qty: 10 0RF polyethylene glycol 3350 [Miralax] 17 gram/dose powder 17 g PO QDAY PRN (Reason: constipation) Qty: 510 0RF PNV cmb#95-ferrous fumarate-FA 1 EACH tablet 1 ea PO DAILY acetaminophen [Tylenol Extra Strength] 500 mg tablet 500 mg PO Q6H PRN (Reason: fever or pain) Activity Restrictions/Additional Instructions: nothing in vagina for 6 week. no lifting more than 15 pounds for 6 weeks. OK to shower, no bath for 2 weeks. call if bps are over 150/100 more than once, significant headache, or very heavy bleeding. keep a very supportive bra on and stimulate breasts as little as possible. Diet: Regular Print Language: Peruvian Patient Instructions: Follow-up Care: Felipa Luong MD [Provider Admit Priv/Credential] -"
== END 2024-10-09 11:00 | disposition home or self-care (01) | DRG 787 ==
LOC: WFO 07:53 → FBP 07:57
PROVIDERS: ADMIT Obstetrics & Gynecology; ATTEND Obstetrics & Gynecology
DX: F41.8 Other specified anxiety disorders; O99.824 Streptococcus B carrier state complicating childbirth; O72.0 Third-stage hemorrhage; O90.81 Anemia of the puerperium; Z3A.37 37 weeks gestation of pregnancy; E66.01 Morbid (severe) obesity due to excess calories; Z37.0 Single live birth; D62 Acute posthemorrhagic anemia; O99.344 Other mental disorders complicating childbirth; O40.3XX0 Polyhydramnios, third trimester, not applicable or unspecified; O76 Abnormality in fetal heart rate and rhythm complicating labor and delivery; O61.0 Failed medical induction of labor; O90.89 Other complications of the puerperium, not elsewhere classified; O10.92 Unspecified pre-existing hypertension complicating childbirth; O99.214 Obesity complicating childbirth